=== PATIENT | female | born 1985 | race Caucasian/White ===

== ENCOUNTER 2016-10-15 12:56 | Outpatient (CLI) | payer OTHER | END 2016-10-15 12:57 | disposition home or self-care (01) | DX: S42.255A Nondisplaced fracture of greater tuberosity of left humerus, initial encounter for closed fracture (principal); M24.812 Other specific joint derangements of left shoulder, not elsewhere classified ==

== ENCOUNTER 2017-05-16 15:47 | Outpatient (CLI) | payer OTHER ==
[2017-05-16 16:28] LABS: BASOPHILS # (AUTO) 0.1 10^3/uL (0.0-0.1); BASOPHILS % (AUTO) 1.1 %; EOSINOPHILS # (AUTO) 0.2 10^3/uL (0.0-0.7); EOSINOPHILS % (AUTO) 2.7 %; HCT - HEMATOCRIT 42.2 % (37.0-47.0); HGB - HEMOGLOBIN 14.1 g/dL (12.0-16.0); LYMPHOCYTES # (AUTO) 2.1 10^3/uL (1.5-3.5); LYMPHOCYTES % (AUTO) 32.8 %; MEAN CORPUSCULAR HEMOGLOBIN 28.7 pg (27.0-31.0); MEAN CORPUSCULAR HGB CONC 33.5 g/dL (32.0-36.0); MEAN CORPUSCULAR VOLUME 85.6 fL (81.0-99.0); MEAN PLATELET VOLUME 7.5 fL (7.9-10.8); MONOCYTES # (AUTO) 0.7 10^3/uL (0.0-1.0); NEUTROPHILS # (AUTO) 3.3 10^3/uL (1.5-6.6); NEUTROPHILS % (AUTO) 52.4 %; RED BLOOD COUNT 4.93 10^6/uL (4.20-5.40); RED CELL DISTRIBUTION WIDTH 13.1 % (12.0-15.0); UNCORRECTED WHITE BLOOD COUNT 6.3 x10^3/uL; WHITE BLOOD COUNT 6.3 x10^3/uL (4.8-10.8)
[2017-05-16 16:47] LABS: ALBUMIN/GLOBULIN RATIO 1.7 (1.0-2.2); BILIRUBIN,TOTAL 0.7 mg/dL (0.2-1.0); POTASSIUM 3.2 mmol/L (3.5-5.0); TOTAL PROTEIN 8.4 g/dL (6.7-8.2)
[2017-05-19 17:12] LABS: TEST RESULT REPORT (())
[2017-05-21 15:51] LABS: TEST RESULT REPORT (())
== END 2017-05-16 15:48 | disposition home or self-care (01) ==
LOC: LAB 15:47
PROVIDERS: ATTEND Physician Assistant Medical
DX: Z83.2 Family history of diseases of the blood and blood-forming organs and certain disorders involving the immune mechanism (principal)
CPT/HCPCS: 80053; 81599; 85025; 85240; 85245; 85246; 85247; 85730

== ENCOUNTER 2017-05-26 07:09 | Outpatient (CLI) | payer OTHER ==
[2017-05-26 13:39] LABS: CALCIUM 9.4 mg/dL (8.5-10.3); CREATININE 0.9 mg/dL (0.4-1.0); POTASSIUM 3.7 mmol/L (3.5-5.0)
== END 2017-05-26 07:10 | disposition home or self-care (01) ==
LOC: LAB.WCP 07:09
PROVIDERS: ATTEND Physician Assistant Medical
DX: E87.6 Hypokalemia (principal)
CPT/HCPCS: 36415; 80048

== ENCOUNTER 2017-07-22 07:01 | Day surgery (SDC) | payer OTHER ==
[~2017-07-22 07:01] MED LIST: LACTATED RINGERS 1,000 ML IV ONE
[2017-07-22 07:48] LABS: HCG UR QUAL NEGATIVE
[2017-07-22] MEDS ORDERED: fentaNYL 100 MCG/2 ML VIAL IVP ONE (08:15)
[2017-07-22] MEDS ORDERED: MIDAZOLAM 2 MG/2 ML VIAL IVP ONE (08:15)
[2017-07-22 09:29] VITALS: BP 118/72
== END 2017-07-22 07:02 | disposition home or self-care (01) ==
LOC: SDS 07:01
PROVIDERS: ATTEND Surgery
PROC: 0DBN8ZX Excision of Sigmoid Colon, Via Natural or Artificial Opening Endoscopic, Diagnostic (ICD-10-PCS; principal; 2017-07-22 08:15)
DX: D12.5 Benign neoplasm of sigmoid colon (principal); K64.8 Other hemorrhoids; I10 Essential (primary) hypertension; Z80.0 Family history of malignant neoplasm of digestive organs
CPT/HCPCS: 45380; 81025; J7120

== ENCOUNTER 2017-07-23 09:02 | Outpatient (CLI) | payer OTHER ==
[2017-07-23 12:59] LABS: BASOPHILS % (AUTO) 0.6 %; EOSINOPHILS # (AUTO) 0.1 10^3/uL (0.0-0.7); EOSINOPHILS % (AUTO) 1.6 %; HCT - HEMATOCRIT 39.7 % (37.0-47.0); HGB - HEMOGLOBIN 13.2 g/dL (12.0-16.0); LYMPHOCYTES # (AUTO) 1.4 10^3/uL (1.5-3.5); LYMPHOCYTES % (AUTO) 18.4 %; MEAN CORPUSCULAR HEMOGLOBIN 28.8 pg (27.0-31.0); MEAN CORPUSCULAR HGB CONC 33.4 g/dL (32.0-36.0); MEAN CORPUSCULAR VOLUME 86.2 fL (81.0-99.0); MEAN PLATELET VOLUME 8.4 fL (7.9-10.8); MONOCYTES # (AUTO) 0.4 10^3/uL (0.0-1.0); MONOCYTES % (AUTO) 5.8 %; NEUTROPHILS # (AUTO) 5.7 10^3/uL (1.5-6.6); NEUTROPHILS % (AUTO) 73.6 %; RED BLOOD COUNT 4.61 10^6/uL (4.20-5.40); UNCORRECTED WHITE BLOOD COUNT 7.7 x10^3/uL; WHITE BLOOD COUNT 7.7 x10^3/uL (4.8-10.8)
[2017-07-23 13:04] LABS: H. PYLORI IGG ANTIBODY Negative (Negative); HPYLORI NEG QC Negative (Negative); HPYLORI POS QC POSITIVE (Positive)
[2017-07-23 13:27] LABS: ALBUMIN/GLOBULIN RATIO 1.6 (1.0-2.2); BILIRUBIN,TOTAL 0.6 mg/dL (0.2-1.0); CALCIUM 9.7 mg/dL (8.5-10.3); POTASSIUM 3.8 mmol/L (3.5-5.0); TOTAL PROTEIN 7.7 g/dL (6.7-8.2)
== END 2017-07-23 09:03 | disposition home or self-care (01) ==
LOC: LAB.WCP 09:02
PROVIDERS: ATTEND Physician Assistant Medical
DX: R11.0 Nausea (principal)
CPT/HCPCS: 36415; 80053; 82150; 83690; 85025; 87339

== ENCOUNTER 2017-09-15 08:42 | Outpatient (CLI) | payer OTHER ==
--- NOTE | 2017-09-15 16:01 | Nuclear Medicine Report ---
EXAM: GASTRIC EMPTYING STUDY EXAM DATE: 09/15/2017 03:08 PM. CLINICAL HISTORY: NAUSEA AND VOMITING. COMPARISON: None. TECHNIQUE: A standard meal was radiolabeled with 1.05 mCi Tc-99m sulfur colloid according to protocol . Following the p.o. administration of this meal, the patient underwent multiple static images over t he abdomen from the anterior and posterior projections, at approximately 0, 1, 2, 3, and 4 hours fol lowing the ingestion of the meal. Region of interest analysis was employed, and percent emptied/perce nt remaining of the meal was calculated using both the geometric mean and decay corrections. FINDINGS: There was an error with the machine and the immediate image data were lost. IMPRESSION: Nondiagnostic exam because of a technical error with the machine. [facility] Referring Provider Line: [phone] SITE ID: [id number]
== END 2017-09-15 08:43 | disposition home or self-care (01) ==
LOC: DI 08:42
PROVIDERS: ATTEND Internal Medicine
DX: R11.2 Nausea with vomiting, unspecified (principal)
CPT/HCPCS: 78265; A9541

== ENCOUNTER 2017-09-24 08:44 | Outpatient (CLI) | payer OTHER ==
--- NOTE | 2017-09-24 14:50 | Nuclear Medicine Report ---
EXAM: GASTRIC EMPTYING STUDY EXAM DATE: 09/24/2017 02:01 PM. CLINICAL HISTORY: NAUSEA AND VOMITING. COMPARISON: None. TECHNIQUE: A standard meal was radiolabeled with 1 mCi Tc-99m sulfur colloid according to protocol. F ollowing the p.o. administration of this meal, the patient underwent multiple static images over the abdomen from the anterior and posterior projections, at approximately 0, 1, 2, 3, and 4 hours follow ing the ingestion of the meal. Region of interest analysis was employed, and percent emptied/percent remaining of the meal was calculated using both the geometric mean and decay corrections. FINDINGS: Calculations demonstrate: TIME (hours) Percent remaining. Normal values for percent remaining. 1 hour: 38.7% (30-90%) 2 hours: 28.7% (0-60%) 3 hours: 21.3% (0-30%) 4 hours: 20.5% (0-10%) IMPRESSION: Delayed gastric emptying. [facility] Referring Provider Line: [phone] SITE ID: [id number]
== END 2017-09-24 08:45 | disposition home or self-care (01) ==
LOC: DI 08:44
PROVIDERS: ATTEND Internal Medicine
DX: R11.2 Nausea with vomiting, unspecified (principal)
CPT/HCPCS: 78265

== ENCOUNTER 2017-10-24 09:07 | Emergency (ER) | payer OTHER ==
[2017-10-24] MEDS ORDERED: SODIUM CHLORIDE 0.9% 1,000 ML IV ONE ×2 (10:27→10:36)
[2017-10-24] MEDS ORDERED: MAG HYDROX/AL HYDROX/SIMETH 30 ML UDC PO STA (10:36)
[2017-10-24] MEDS ORDERED: PROMETHAZINE INJ 12.5 MG in SODIUM CHLORIDE 0.9% 50 ML IV STA (10:36)
[2017-10-24] MEDS ORDERED: PHENobarb/HYOSCY/ATROPINE/SCOP 5 ML SYRINGE PO STA (10:36)
[2017-10-24] MEDS ORDERED: LIDOCAINE VISCOUS 2% 15 ML UDC MM STA (10:37)
--- NOTE | 2017-10-24 10:40 | ED Physician Documentation ---
PD HPI ABD PAIN - Stated complaint Stated Complaint: VOMITING/UNABLE TO EAT - Chief complaint Chief Complaint: Abd Pain - History obtained from History obtained from: Patient - History of Present Illness Timing - onset: Yesterday Timing - details: Waxing and waning Quality: Cramping Location: Epigastric Worsened by: Eating Associated symptoms: Nausea, Vomiting, Constipation. No: Fever, Diarrhea Similar symptoms before: Work up / diagnostics (Gastric emptying study for chronic nausea.) - Treatment prior to arrival Treatment prior to arrival: Zofran without relief. - Additional information Additional information: The patient is a 32-year-old female who presents with nausea and dry heaves that have been persistent since last night. She has a history of chronic nausea for more than 1 year, and has undergone diagnostic evaluation, including gastric emptying studies. She reports having nausea on a daily basis, with exacerbations of persistent vomiting at times. This morning she has had dry heaves, and has been unable to keep anything down. She has taken Zofran without relief. She reports epigastric cramping discomfort. She denies fever, diarrhea, or dysuria. She reports problems with constipation, stating her last bowel movement was yesterday morning. Her last menstrual period was 3 weeks ago. Review of Systems Constitutional: denies: Fever Ears: denies: Tinnitus/ringing Nose: denies: Congestion Throat: denies: Sore throat Cardiac: denies: Chest pain / pressure Respiratory: denies: Dyspnea, Cough GI: reports: Abdominal Pain, Nausea, Vomiting. denies: Diarrhea : reports: LMP (3 weeks ago.). denies: Dysuria Skin: denies: Rash Musculoskeletal: denies: Back pain Neurologic: denies: Focal weakness, Numbness, Headache PD PAST MEDICAL HISTORY - Past Medical History Cardiovascular: None Respiratory: None Endocrine/Autoimmune: None GI: Other (Chronic nausea.) : None HEENT: None Psych: Depression, Anxiety Musculoskeletal: None Derm: None - Past Surgical History HEENT: Tonsil/Adenoidectomy - Present Medications Home Medications: Ambulatory Orders Medication Instructions Recorded Confirmed Buspirone HCl 5 mg PO DAILY 07/21/17 07/22/17 Norethindrone 0.35 mg PO DAILY 07/21/17 07/22/17 buPROPion [Wellbutrin Sr] 100 mg PO BID 10/23/17 10/23/17 Metoclopramide [Reglan] 10 mg PO Q6H PRN #20 tablet 10/24/17 - Allergies Allergies/Adverse Reactions: Allergies Allergy/AdvReac Type Severity Reaction Status Date / Time No Known Drug Allergies Allergy Verified 10/24/17 09:27 - Social History Does the pt smoke?: No Smoking Status: Never smoker Does the pt drink ETOH?: Yes Does the pt have substance abuse?: No PD ED PE NORMAL - Vitals Vital signs reviewed: Yes (Initially hypertensive.) - General General: Alert and oriented X 3, Well developed/nourished - HEENT HEENT: Atraumatic, Moist mucous membranes, Pharynx benign - Neck Neck: Supple, no meningeal sign, No adenopathy - Cardiac Cardiac: RRR, No murmur - Respiratory Respiratory: No respiratory distress, Clear bilaterally - Abdomen Abdomen: Normal bowel sounds, Soft, Non distended, No organomegaly, Other (Mild tenderness to palpation in the epigastric region, without rebound or guarding.) - Back Back: No CVA TTP - Derm Derm: No rash - Extremities Extremities: No edema, No calf tenderness / cord - Neuro Neuro: Alert and oriented X 3, No motor deficit, Normal speech Results - Vitals Vitals: Vital Signs - 24 hr 10/24/17 10/24/17 12:44 14:46 Temperature 36 C L 36.9 C Heart Rate 91 110 H Respiratory 18 20 Rate Blood Pressure 125/84 H 115/77 O2 Saturation 100 100 Oxygen O2 Source Room air - Labs Labs: Laboratory Tests 10/24/17 10/24/17 10/24/17 10:10 10:40 11:20 WBC 9.0 RBC 4.83 Hgb 14.1 Hct 39.5 MCV 81.9 MCH 29.2 MCHC 35.7 RDW 13.1 Plt Count 334 MPV 7.5 L Neut # 7.1 H Lymph # 1.2 L [place] # 0.5 Eos # 0.0 Baso # 0.1 Absolute Nucleated RBC 0.00 Nucleated RBC % 0.0 Sodium 140 Potassium 3.7 Chloride 106 Carbon Dioxide 22 Anion Gap 12.0 BUN 12 Creatinine 0.9 Estimated GFR (MDRD) 74 L Glucose 80 Calcium 10.3 Total Bilirubin 0.7 AST 24 ALT 21 Alkaline Phosphatase 57 Total Protein 8.2 Albumin 4.9 Globulin 3.3 Albumin/Globulin Ratio 1.5 Lipase 28 Urine Color YELLOW Urine Clarity CLEAR Urine pH 6.5 Ur Specific [place] 1.020 Urine Protein NEGATIVE Urine Glucose (UA) NEGATIVE Urine Ketones TRACE Urine Occult Blood NEGATIVE Urine Nitrite NEGATIVE Urine Bilirubin NEGATIVE Urine Urobilinogen 0.2 (NORMAL) Ur Leukocyte Esterase NEGATIVE Ur Microscopic Review NOT INDICATED Urine Culture Comments NOT INDICATED Urine HCG, Qual NEGATIVE - Rads (name of study) 1-view abd Radiology: Prelim report reviewed, EMP read contemporaneously, See rad report ( No bowel obstruction. Mild to moderate gaseous distention of small bowel and colon. Small volume of stool in the colon. Electronic device projects over the right upper quadrant.) PD MEDICAL DECISION MAKING - ED course Complexity details: reviewed results, re-evaluated patient, considered differential, d/w patient ED course: The underlying cause for the patient's nausea is uncertain, but is of relatively chronic duration, for which she has undergone extensive evaluation in the past. Abdominal x-ray today reveals mild to moderate gaseous distention , without evidence of bowel obstruction. CBC, chemistry panel, and urinalysis are unremarkable. Treatment in the emergency department included administration of normal saline 1 L IV, Phenergan 12.5 mg IV, and Reglan 10 mg IV. These anti-emetics did not relieve her nausea. Lorazepam 0.5 mg is administered IV and the patient's symptoms markedly improved. GI cocktail was administered, and this relieved the patient's mild epigastric discomfort. She subsequently demonstrated ability to drink fluids without recurrent nausea or vomiting. She is being discharged with a prescription for metoclopramide. I discussed with her the results of her workup, symptomatic treatment and outpatient follow-up, as well as potentially worrisome signs or symptoms that should prompt reevaluation in the emergency department. Departure - Departure Disposition: 01 Home, Self Care Clinical Impression: Nausea Condition: Stable Instructions: ED Nausea Vomiting Follow-Up: Kati Shah PA-C [Primary Care Provider] - Prescriptions: Metoclopramide [Reglan] 10 mg PO Q6H PRN #20 tablet PRN Reason: Nausea / Vomiting Comments: Take Reglan as prescribed if needed for nausea. Drink plenty of fluids. Follow up with your primary physician within 1-2 weeks. Call to schedule appointment. Return to the emergency department if you develop increasing abdominal pain, persistent vomiting, or otherwise worsening symptoms. Discharge Date/Time: 10/24/17 14:46
[2017-10-24 10:57] LABS: BASOPHILS # (AUTO) 0.1 10^3/uL (0.0-0.1); BASOPHILS % (AUTO) 1.3 %; EOSINOPHILS % (AUTO) 0.4 %; HGB - HEMOGLOBIN 14.1 g/dL (12.0-16.0); LYMPHOCYTES # (AUTO) 1.2 10^3/uL (1.5-3.5); LYMPHOCYTES % (AUTO) 13.6 %; MEAN CORPUSCULAR HEMOGLOBIN 29.2 pg (27.0-31.0); MEAN CORPUSCULAR HGB CONC 35.7 g/dL (32.0-36.0); MEAN CORPUSCULAR VOLUME 81.9 fL (81.0-99.0); MEAN PLATELET VOLUME 7.5 fL (7.9-10.8); MONOCYTES # (AUTO) 0.5 10^3/uL (0.0-1.0); MONOCYTES % (AUTO) 5.6 %; NEUTROPHILS # (AUTO) 7.1 10^3/uL (1.5-6.6); NEUTROPHILS % (AUTO) 79.1 %; PLT - PLATELET COUNT 334 10^3/uL (130-450); RED BLOOD COUNT 4.83 10^6/uL (4.20-5.40); RED CELL DISTRIBUTION WIDTH 13.1 % (12.0-15.0)
[2017-10-24 11:05] LABS: ALBUMIN 4.9 g/dL (3.2-5.5); ALBUMIN/GLOBULIN RATIO 1.5 (1.0-2.2); BILIRUBIN,TOTAL 0.7 mg/dL (0.2-1.0); CALCIUM 10.3 mg/dL (8.5-10.3); CREATININE 0.9 mg/dL (0.4-1.0); TOTAL PROTEIN 8.2 g/dL (6.7-8.2)
[2017-10-24] MEDS ORDERED: METOCLOPRAMIDE 10 MG/2 ML VIAL IVP STA (11:27)
[2017-10-24 11:33] LABS: BILIRUBIN,URINE NEGATIVE (NEGATIVE); GLUCOSE, URINE (UA) NEGATIVE (NEGATIVE); KETONES,URINE (UA) TRACE mg/dL (NEGATIVE); LEUKOCYTE ESTERASE, URINE NEGATIVE (NEGATIVE); NITRITE,URINE NEGATIVE (NEGATIVE); OCCULT BLOOD,URINE NEGATIVE (NEGATIVE); PH,URINE 6.5 PH (5.0-7.5); PROTEIN,URINE NEGATIVE (NEGATIVE); UROBILINOGEN,URINE 0.2 (NORMAL) E.U./dL (NORMAL)
[2017-10-24 11:35] LABS: CLARITY,URINE CLEAR (CLEAR); HCG UR QUAL NEGATIVE
--- NOTE | 2017-10-24 12:18 | XRAY Report ---
EXAM: ABDOMEN RADIOGRAPHY EXAM DATE: 10/24/2017 12:07 PM. CLINICAL HISTORY: Cramping abdominal pain. History of constipation. COMPARISON: None. TECHNIQUE: 1 view. FINDINGS: Bowel Gas Pattern: Mild to moderate gaseous distention of small bowel and colon. No evidence of bowel obstruction. [id number] gaseous distention of the stomach. Electronic device projects over the right upper quadrant. No portal venous gas or pneumatosis. Small volume of stool in the colon. Other: Lung bases are clear. No osseous abnormalities. IMPRESSION: 1. No bowel obstruction. 2. Mild to moderate gaseous distention of small bowel and colon. 3. Small volume of stool in the colon. 4. Electronic device projects over the right upper quadrant. [facility] Referring Provider Line: [phone] SITE ID: [id number]
--- NOTE | 2017-10-24 12:18 | XRAY Preliminary Report ---
Exam: XR ABDOMEN 1 VIEW X-RAY IMPRESSION: 1. No bowel obstruction. 2. Mild to moderate gaseous distention of small bowel and colon. 3. Small volume of stool in the colon. 4. Electronic device projects over the right upper quadrant. [facility] SITE ID: [id number]
[2017-10-24] MEDS ORDERED: LORazepam 2 MG/ML VIAL IVP STA (12:35)
[2017-10-24 14:47] VITALS: BP 115/77
== END 2017-10-24 14:46 | disposition home or self-care (01) ==
LOC: ED 09:07
DX: R11.2 Nausea with vomiting, unspecified (principal); R10.13 Epigastric pain
CPT/HCPCS: 36415; 74018; 80053; 81003; 81025; 83690; 85025; 96365; 96375; 99283; A9270; J2060; J7040; 81001; 87086

== ENCOUNTER 2018-12-22 08:00 | Outpatient (CLI) | payer OTHER | END 2018-12-22 23:59 | disposition home or self-care (01) | LOC: LAB.R 08:00 | PROVIDERS: ATTEND Obstetrics & Gynecology | DX: N89.8 Other specified noninflammatory disorders of vagina (principal); B37.3 Candidiasis of vulva and vagina | CPT/HCPCS: 87480; 87510; 87660 ==

== ENCOUNTER 2019-01-12 18:19 | Emergency (ER) | payer OTHER ==
--- NOTE | 2019-01-12 18:49 | ED Physician Documentation ---
PD HPI CHEST PAIN - Stated complaint Stated Complaint: CHEST THIGHTNESS/BILAT LEG PAIN - Chief complaint Chief Complaint: Cardiac - History obtained from History obtained from: Patient - History of Present Illness Timing - onset: Other (On and off for months with difficulty taking a deep breath d/t chest tightness. Now for 1 week, tight in L calf and more recently moving to R calf. No travel. Is on OCP. No H/O DVt/PE.) Review of Systems Ten Systems: 10 systems reviewed and negative Constitutional: denies: Fever, Chills Cardiac: reports: Chest pain / pressure. denies: Palpitations, Pedal edema, Calf pain Respiratory: denies: Dyspnea, Cough GI: reports: Abdominal Pain PD PAST MEDICAL HISTORY - Past Medical History Cardiovascular: None Respiratory: None Endocrine/Autoimmune: None GI: Other (Chronic nausea.) : None HEENT: None Psych: Depression, Anxiety Musculoskeletal: None Derm: None - Past Surgical History HEENT: Tonsil/Adenoidectomy - Present Medications Home Medications: Ambulatory Orders Medication Instructions Recorded Confirmed RX: Buspirone HCl 10 mg PO BID 07/21/17 01/12/19 RX: Norethindrone 0.35 mg PO DAILY 07/21/17 01/12/19 buPROPion [Wellbutrin Sr] 300 mg PO DAILY 07/21/17 01/12/19 RX: Promethazine [Phenergan] 1 tab PO TID PRN 01/12/19 01/12/19 - Allergies Allergies/Adverse Reactions: Allergies Allergy/AdvReac Type Severity Reaction Status Date / Time No Known Drug Allergies Allergy Verified 01/12/19 18:30 - Social History Does the pt smoke?: No Smoking Status: Never smoker Does the pt drink ETOH?: Yes Does the pt have substance abuse?: No PD ED PE NORMAL - Vitals Vital signs reviewed: Yes - General General: Alert and oriented X 3, No acute distress - Cardiac Cardiac: RRR, No murmur - Respiratory Respiratory: No respiratory distress, Clear bilaterally - Abdomen Abdomen: Non tender - Derm Derm: Normal color, Warm and dry - Extremities Extremities: No edema, No calf tenderness / cord - Neuro Neuro: Alert and oriented X 3, Normal speech - Psych Psych: Normal mood, Normal affect Results - Vitals Vitals: Vital Signs - 24 hr 01/12/19 01/12/19 01/12/19 18:22 19:08 20:45 Temperature 37.0 C 36.2 C L Heart Rate 95 78 Respiratory 18 17 16 Rate Blood Pressure 153/107 H 137/96 H O2 Saturation 100 100 Oxygen O2 Source Room air - EKG (time done) 1836 Rate: Rate (enter#) (89) Rhythm: NSR [place]: Normal Intervals: Normal [place] QRS: Normal Ischemia: Normal ST segments Computer interpretation: Agree with computer - Labs Labs: Laboratory Tests 01/12/19 01/12/19 19:10 19:10 D-Dimer < 200.0 L Urine Color YELLOW Urine Clarity CLEAR Urine pH 6.5 Ur Specific [place] <=1.005 Urine Protein NEGATIVE Urine Glucose (UA) NEGATIVE Urine Ketones NEGATIVE Urine Occult Blood NEGATIVE Urine Nitrite NEGATIVE Urine Bilirubin NEGATIVE Urine Urobilinogen 0.2 (NORMAL) Ur Leukocyte Esterase NEGATIVE Ur Microscopic Review NOT INDICATED Urine Culture Comments NOT INDICATED Urine HCG, Qual NEGATIVE - Rads (name of study) 2v chest Radiology: EMP read contemporaneously (normal) BLE DVT sono Radiology: EMP read contemporaneously (neg) PD MEDICAL DECISION MAKING - ED course ED course: This is a 33-year-old woman with atypical chest pain, given the complaints of leg pain the main concern would be for thrombosis, and this was worked up and negative with d-dimer and lower extremity Dopplers. Departure - Departure Disposition: 01 Home, Self Care Clinical Impression: Atypical chest pain, Leg pain Condition: Good Record reviewed to determine appropriate education?: Yes Instructions: ED Chest Pain NonCardiac, ED Muscle Pain Leg Cramps Comments: Your blood pressure was elevated today on check into the emergency department. This does not mean that you have hypertension, it is a common phenomenon to come to the emergency department and have elevated blood pressure. I recommend that you see your primary care physician within the week to have it rechecked when you are feeling better. Discharge Date/Time: 01/12/19 20:46
[2019-01-12 19:27] LABS: BILIRUBIN,URINE NEGATIVE (NEGATIVE); GLUCOSE, URINE (UA) NEGATIVE (NEGATIVE); KETONES,URINE (UA) NEGATIVE (NEGATIVE); LEUKOCYTE ESTERASE, URINE NEGATIVE (NEGATIVE); NITRITE,URINE NEGATIVE (NEGATIVE); OCCULT BLOOD,URINE NEGATIVE (NEGATIVE); PH,URINE 6.5 PH (5.0-7.5); PROTEIN,URINE NEGATIVE (NEGATIVE); UROBILINOGEN,URINE 0.2 (NORMAL) E.U./dL (NORMAL)
[2019-01-12 19:30] LABS: CLARITY,URINE CLEAR (CLEAR); HCG UR QUAL NEGATIVE
--- NOTE | 2019-01-12 20:13 | Ultrasound Report ---
Reason: leg pain Procedure Date: 01/12/2019 Accession Number: [id number] / [id number] Procedure: US - Duplex Ext Veins Bilateral CPT Code: FULL RESULT: EXAM: BILATERAL LOWER EXTREMITY VENOUS ULTRASOUND EXAM DATE: 01/12/2019 08:05 PM. CLINICAL HISTORY: Leg pain. COMPARISON: None. TECHNIQUE: Real-time sonographic vascular imaging was performed by the fixed income analyst through the lower extremities utilizing both color-flow and Doppler spectral analysis. Multiple visitor services representative static images were saved for review. FINDINGS: Right: Common Femoral Vein (CFV): Normal. CFV-GSV Junction: Normal. Profunda Femoral Vein (PFV): Normal. Femoral Vein (FV) Prox: Normal. Femoral Vein (FV) Mid: Normal. Femoral Vein (FV) Dist: Normal. Popliteal Vein: Normal. Posterior Tibial Veins: Normal. Peroneal Veins: Normal. Left: Common Femoral Vein (CFV): Normal. CFV-GSV Junction: Normal. Profunda Femoral Vein (PFV): Normal. Femoral Vein (FV) Prox: Normal. Femoral Vein (FV) Mid: Normal. Femoral Vein (FV) Dist: Normal. Popliteal Vein: Normal. Posterior Tibial Veins: Normal. Peroneal Veins: Normal. Other: None. IMPRESSION: No evidence for deep venous thrombosis in the visualized bilateral lower extremities. [facility]
--- NOTE | 2019-01-12 20:35 | XRAY Report ---
Reason: chest pain Procedure Date: 01/12/2019 Accession Number: [id number] / [id number] Procedure: XR - Chest 2 View X-Ray CPT Code: 80386 FULL RESULT: EXAM: CHEST RADIOGRAPHY EXAM DATE: 01/12/2019 08:10 PM. CLINICAL HISTORY: Chest pain. COMPARISON: None. TECHNIQUE: 2 views. FINDINGS: Lungs/Pleura: No dense consolidation. No large effusion or pneumothorax. No pulmonary edema. Mediastinum: Heart and mediastinal contours are unremarkable. Other: None. IMPRESSION: No acute radiographic pulmonary abnormalities. [facility]
[2019-01-12 20:45] VITALS: BP 137/96
== END 2019-01-12 20:46 | disposition home or self-care (01) ==
LOC: ED 18:19
DX: R07.89 Other chest pain (principal); M79.605 Pain in left leg; M79.604 Pain in right leg; R03.0 Elevated blood-pressure reading, without diagnosis of hypertension
CPT/HCPCS: 36415; 71046; 81001; 81003; 81025; 85379; 87086; 93005; 93970; 99283

== ENCOUNTER 2019-01-18 10:09 | Outpatient (CLI) | payer OTHER ==
[2019-01-18 14:40] LABS: ALBUMIN 4.5 g/dL (3.2-5.5); ALBUMIN/GLOBULIN RATIO 1.4 (1.0-2.2); BILIRUBIN,TOTAL 0.5 mg/dL (0.2-1.0); MAGNESIUM 2.4 mg/dL (1.7-2.8); TOTAL PROTEIN 7.8 g/dL (6.7-8.2)
== END 2019-01-18 10:10 | disposition home or self-care (01) ==
LOC: LAB.WCP 10:09
PROVIDERS: ATTEND Family Medicine
DX: R25.2 Cramp and spasm (principal)
CPT/HCPCS: 36415; 80053; 83735

== ENCOUNTER 2019-01-27 09:02 | Outpatient (CLI) | payer OTHER ==
[2019-01-27] MEDS ORDERED: ALBUTEROL NEB 2.5 MG/3 ML INH SCH (10:00)
== END 2019-01-27 09:03 | disposition home or self-care (01) ==
LOC: RT 09:02
PROVIDERS: ATTEND Family Medicine
DX: R06.00 Dyspnea, unspecified (principal)
CPT/HCPCS: 94060; 94729

== ENCOUNTER 2019-07-14 10:09 | Outpatient (CLI) | payer OTHER ==
[2019-07-14 12:17] LABS: BASOPHILS # (AUTO) 0.1 10^3/uL (0.0-0.1); BASOPHILS % (AUTO) 0.8 %; EOSINOPHILS # (AUTO) 0.1 10^3/uL (0.0-0.7); HGB - HEMOGLOBIN 13.6 g/dL (12.0-16.0); LYMPHOCYTES # (AUTO) 1.9 10^3/uL (1.5-3.5); LYMPHOCYTES % (AUTO) 30.2 %; MEAN CORPUSCULAR HEMOGLOBIN 28.3 pg (27.0-31.0); MEAN CORPUSCULAR VOLUME 88.4 fL (81.0-99.0); MEAN PLATELET VOLUME 9.7 fL (7.9-10.8); MONOCYTES # (AUTO) 0.5 10^3/uL (0.0-1.0); MONOCYTES % (AUTO) 8.4 %; NEUTROPHILS # (AUTO) 3.7 10^3/uL (1.5-6.6); NEUTROPHILS % (AUTO) 58.3 %; PLT - PLATELET COUNT 335 10^3/uL (130-450); RED BLOOD COUNT 4.81 10^6/uL (4.20-5.40); RED CELL DISTRIBUTION WIDTH 12.6 % (12.0-15.0); WHITE BLOOD COUNT 6.4 x10^3/uL (4.8-10.8)
[2019-07-14 13:09] LABS: ALBUMIN 4.6 g/dL (3.2-5.5); ALBUMIN/GLOBULIN RATIO 1.5 (1.0-2.2); BILIRUBIN,TOTAL 0.6 mg/dL (0.2-1.0); CALCIUM 9.9 mg/dL (8.5-10.3); CREATININE 0.9 mg/dL (0.4-1.0); TOTAL PROTEIN 7.7 g/dL (6.7-8.2)
== END 2019-07-14 23:59 | disposition home or self-care (01) ==
LOC: LAB.WCP 10:09
PROVIDERS: ATTEND Family Medicine
DX: R10.31 Right lower quadrant pain (principal)
CPT/HCPCS: 36415; 80053; 83690; 84702; 85025

== ENCOUNTER 2019-08-03 06:00 | Outpatient (CLI) | payer OTHER ==
[2019-08-03] MEDS ORDERED: IOVERSOL 320 100 ML VIAL IVP ONE ×2 (06:27→07:36)
[2019-08-03] MEDS ORDERED: IOVERSOL 320 50 ML VIAL ONE (06:27)
[2019-08-03] MEDS ORDERED: IOVERSOL 320 50 ML VIAL PO ONE (07:36)
--- NOTE | 2019-08-03 15:52 | CT Report ---
Reason: RIGHT LOWER QUADRANT PAIN Procedure Date: 08/03/2019 Accession Number: [id number] / [id number] Procedure: CT - Abdomen/Pelvis W CPT Code: Final Report FULL RESULT: EXAM: CT ABDOMEN AND PELVIS WITH IV CONTRAST EXAM DATE: 08/03/2019 07:34 AM. CLINICAL HISTORY: Right lower quadrant pain. COMPARISONS: ABDOMEN 1 VIEW 10/24/2017. TECHNIQUE: Routine helical CT imaging was performed through the abdomen and pelvis. IV contrast: Optiray 320, 90 mL. Enteric contrast: Yes. Reconstructions: Coronal and sagittal. In accordance with CT protocol optimization, one or more of the following dose reduction techniques were utilized for this exam: automated exposure control, adjustment of mA and/or KV based on patient size, or use of iterative reconstructive technique. FINDINGS: Lung Bases: Unremarkable. Liver: Normal. No masses. Gallbladder/Bile Ducts: Unremarkable. Spleen: Normal. Pancreas: Normal. Adrenal Glands: Normal. Kidneys: Normal. No masses or hydronephrosis. Peritoneal Cavity/Bowel: The appendix demonstrates periappendiceal fat stranding and measures up to 1.1 cm in caliber at the tip, location is retrocecal with contrast entering the base of the appendix but unable to progress. There is no associated free fluid or fluid collection. There is no free air. There is no bowel obstruction. There is no pathologic enlargement of lymph nodes. Pelvic Organs: A calcification in the region of the left ureterovesical junction is also demonstrated on a 2018 abdominal radiograph and there is no upstream hydroureteronephrosis to suggest that this is a ureteral calculus. Urinary bladder is distended. Vasculature: No aneurysms or other significant abnormality. Bones: No significant abnormality. Other: None. IMPRESSION: Uncomplicated acute appendicitis. Please note retrocecal appendix for surgical approach. NOEL The call report notification system was initiated by Dr. Andre Whitaker at 03:48 PM on 08/03/2019. The above call report findings were discussed with JEN Cabrera on behalf of Linette Colindres by Dr. Andre Whitaker at 03:54 PM on 08/03/2019. She shared that the diagnosis of acute appendicitis was indeed the clinical concern and agreed to contact the patient immediately.
[2019-08-03] MEDS ORDERED: LIDOCAINE 1% 50 ML MDV ONE (19:45)
[2019-08-03] MEDS ORDERED: BUPIVACAINE 0.5% PF 30 ML VIAL ONE (19:46)
[2019-08-03] MEDS ORDERED: BUPIVACAINE 0.5%-EPI 1:200000 PF 30 ML VIAL ONE (19:48)
== END 2019-08-03 06:01 | disposition home or self-care (01) ==
LOC: DI 06:00
PROVIDERS: ATTEND Family Medicine
DX: K35.80 Unspecified acute appendicitis (principal)
CPT/HCPCS: 74177

== ENCOUNTER 2019-08-03 16:59 | Day surgery (SDC) | payer OTHER ==
[2019-08-03] MEDS ORDERED: LACTATED RINGERS 1,000 ML IV STA (17:29)
[2019-08-03] MEDS ORDERED: PIPERACILLIN/TAZOBACTAM 3.375 GM in SODIUM CHLORIDE 0.9% MINIBAG 100 ML IV STA (17:29)
--- NOTE | 2019-08-03 17:31 | ED Physician Documentation ---
PD HPI ABD PAIN - Stated complaint Stated Complaint: DX OF APPENDICITIS FROM DI - Chief complaint Chief Complaint: Abd Pain - History obtained from History obtained from: Patient - History of Present Illness Timing - onset: How many days ago (2) Timing - duration: Days (2) Timing - details: Gradual onset Pain level max: 4 Pain level now: 4 Quality: Aching, Pain Location: RLQ Radiation: No: Chest, , Lower back, Left flank, Left shoulder, Right flank, Right shoulder, Upper back Improved by: Laying still Worsened by: Moving Associated symptoms: No: Fever, Nausea, Vomiting, Hematemesis, Diarrhea, Constipation Recently seen: Clinic - Additional information Additional information: 34-year-old female states that she has had intermittent right lower quadrant pain for the past several months. She is saw her PCP today who ordered a CT scan, the CT scan shows tip appendicitis. Sent here for evaluation. Review of Systems Ten Systems: 10 systems reviewed and negative Constitutional: denies: Fever, Chills GI: denies: Vomiting, Diarrhea Skin: denies: Rash Musculoskeletal: denies: Neck pain, Back pain PD PAST MEDICAL HISTORY - Past Medical History Cardiovascular: None Respiratory: None Endocrine/Autoimmune: None GI: Other (Chronic nausea.) : None HEENT: None Psych: Depression, Anxiety Musculoskeletal: None Derm: None - Past Surgical History Past Surgical History: Yes HEENT: Tonsil/Adenoidectomy - Present Medications Home Medications: Ambulatory Orders Medication Instructions Recorded Confirmed Buspirone HCl 10 mg PO BID 07/21/17 01/12/19 Norethindrone 0.35 mg PO DAILY 07/21/17 01/12/19 buPROPion [Wellbutrin Sr] 300 mg PO DAILY 07/21/17 01/12/19 Promethazine [Phenergan] 1 tab PO TID PRN 01/12/19 01/12/19 Ondansetron Odt [Zofran] 4 mg TL Q6H PRN #20 tablet 08/03/19 oxyCODONE [Roxicodone] 5 mg PO Q6H PRN #20 tablet 08/03/19 - Allergies Allergies/Adverse Reactions: Allergies Allergy/AdvReac Type Severity Reaction Status Date / Time No Known Drug Allergies Allergy Verified 01/12/19 18:30 - Social History Does the pt smoke?: No Smoking Status: Never smoker Does the pt drink ETOH?: Yes Does the pt have substance abuse?: No - Immunizations Immunizations are current?: Yes PD ED PE NORMAL - Vitals Vital signs reviewed: Yes - General General: Alert and oriented X 3, No acute distress - HEENT HEENT: Moist mucous membranes - Neck Neck: Supple, no meningeal sign - Cardiac Cardiac: RRR - Respiratory Respiratory: No respiratory distress, Clear bilaterally - Abdomen Abdomen: Soft, Other (Tender to palpation right lower quadrant McBurney's point. No peritoneal signs) - Back Back: No CVA TTP - Derm Derm: Warm and dry - Extremities Extremities: No edema - Neuro Neuro: Alert and oriented X 3 Results - Vitals Vitals: Vital Signs - 24 hr 08/03/19 08/03/19 08/03/19 17:04 18:32 19:21 Temperature 37.1 C 36.9 C Heart Rate 112 H 76 106 H Respiratory 16 14 18 Rate Blood Pressure 156/99 H 136/98 H 133/93 H O2 Saturation 100 97 100 08/03/19 08/03/19 08/03/19 21:15 21:20 21:25 Temperature 37.3 C 37.2 C 37.3 C Heart Rate 114 H 114 H 106 H Respiratory 18 20 18 Rate Blood Pressure 142/96 H 142/94 H 133/82 H O2 Saturation 100 100 100 08/03/19 08/03/19 08/03/19 21:30 21:35 21:40 Temperature 37.3 C 37.2 C 37.2 C Heart Rate 106 H 95 94 Respiratory 16 16 18 Rate Blood Pressure 135/88 H 134/88 H 133/90 H O2 Saturation 100 100 100 08/03/19 08/03/19 08/03/19 21:45 21:50 22:03 Temperature 36.8 C 36.8 C 37.1 C Heart Rate 96 99 100 Respiratory 18 14 18 Rate Blood Pressure 135/93 H 134/91 H 132/96 H O2 Saturation 100 99 100 08/03/19 08/03/19 22:16 22:31 Temperature 37.0 C 37.3 C Heart Rate 99 107 H Respiratory 18 18 Rate Blood Pressure 132/87 H 131/90 H O2 Saturation 99 98 Oxygen O2 Source Room air - Labs Labs: Laboratory Tests 08/03/19 08/03/19 08/03/19 17:30 17:30 18:23 WBC 6.6 RBC 4.66 Hgb 13.4 Hct 41.1 MCV 88.2 MCH 28.8 MCHC 32.6 RDW 12.6 Plt Count 313 MPV 9.0 Neut # (Auto) 3.6 Lymph # (Auto) 2.1 Carbon # (Auto) 0.7 Eos # (Auto) 0.2 Baso # (Auto) 0.1 Absolute Nucleated RBC 0.00 Nucleated RBC % 0.0 Sodium 143 Potassium 3.4 L Chloride 106 Carbon Dioxide 28 Anion Gap 9.0 BUN 14 Creatinine 1.0 Estimated GFR (MDRD) 64 L Glucose 86 Calcium 9.8 Total Bilirubin 0.5 AST 20 ALT 18 Alkaline Phosphatase 57 Total Protein 7.5 Albumin 4.6 Globulin 2.9 Albumin/Globulin Ratio 1.6 Lipase 41 Urine Color YELLOW Urine Clarity CLEAR Urine pH 7.0 Ur Specific [place] <=1.005 Urine Protein NEGATIVE Urine Glucose (UA) NEGATIVE Urine Ketones NEGATIVE Urine Occult Blood NEGATIVE Urine Nitrite NEGATIVE Urine Bilirubin NEGATIVE Urine Urobilinogen 0.2 (NORMAL) Ur Leukocyte Esterase NEGATIVE Ur Microscopic Review NOT INDICATED Urine Culture Comments NOT INDICATED Urine HCG, Qual NEGATIVE PD MEDICAL DECISION MAKING - ED course Complexity details: reviewed old records, reviewed results, re-evaluated patient, considered differential, d/w patient, d/w family, d/w garden consultant ED course: Patient with acute appendicitis on outpatient CT today. Labs were drawn here. Started on Zosyn. I consulted Dr. Hess, general surgery at 1730. She will come and evaluate the patient. Patient states she had a bowl of cereal at 2 PM today. Departure - Departure Disposition: ED Transfer to [facility] Clinical Impression: Appendicitis Qualifiers: Appendicitis type: acute appendicitis Acute appendicitis type: with localized peritonitis Appendicitis gangrene presence: unspecified whether gangrene present Appendicitis perforation presence: without perforation Appendicitis abscess presence: without abscess Qualified Code(s): K35.30 - Acute appendicitis with localized peritonitis, without perforation or gangrene Condition: Stable Discharge Date/Time: 08/03/19 20:25
[2019-08-03 17:42] LABS: BASOPHILS # (AUTO) 0.1 10^3/uL (0.0-0.1); BASOPHILS % (AUTO) 0.8 %; EOSINOPHILS # (AUTO) 0.2 10^3/uL (0.0-0.7); EOSINOPHILS % (AUTO) 2.9 %; HGB - HEMOGLOBIN 13.4 g/dL (12.0-16.0); LYMPHOCYTES # (AUTO) 2.1 10^3/uL (1.5-3.5); LYMPHOCYTES % (AUTO) 31.4 %; MEAN CORPUSCULAR HEMOGLOBIN 28.8 pg (27.0-31.0); MEAN CORPUSCULAR HGB CONC 32.6 g/dL (32.0-36.0); MEAN CORPUSCULAR VOLUME 88.2 fL (81.0-99.0); MONOCYTES # (AUTO) 0.7 10^3/uL (0.0-1.0); MONOCYTES % (AUTO) 10.2 %; NEUTROPHILS # (AUTO) 3.6 10^3/uL (1.5-6.6); NEUTROPHILS % (AUTO) 54.4 %; PLT - PLATELET COUNT 313 10^3/uL (130-450); RED BLOOD COUNT 4.66 10^6/uL (4.20-5.40); RED CELL DISTRIBUTION WIDTH 12.6 % (12.0-15.0); WHITE BLOOD COUNT 6.6 x10^3/uL (4.8-10.8)
[2019-08-03 17:55] LABS: ALBUMIN 4.6 g/dL (3.2-5.5); ALBUMIN/GLOBULIN RATIO 1.6 (1.0-2.2); BILIRUBIN,TOTAL 0.5 mg/dL (0.2-1.0); CALCIUM 9.8 mg/dL (8.5-10.3); TOTAL PROTEIN 7.5 g/dL (6.7-8.2)
[2019-08-03 18:38] LABS: BILIRUBIN,URINE NEGATIVE (NEGATIVE); GLUCOSE, URINE (UA) NEGATIVE (NEGATIVE); KETONES,URINE (UA) NEGATIVE (NEGATIVE); LEUKOCYTE ESTERASE, URINE NEGATIVE (NEGATIVE); NITRITE,URINE NEGATIVE (NEGATIVE); OCCULT BLOOD,URINE NEGATIVE (NEGATIVE); PROTEIN,URINE NEGATIVE (NEGATIVE); UROBILINOGEN,URINE 0.2 (NORMAL) E.U./dL (NORMAL)
[2019-08-03 19:00] LABS: CLARITY,URINE CLEAR (CLEAR); HCG UR QUAL NEGATIVE
[2019-08-03] MEDS ORDERED: MIDAZOLAM 2 MG/2 ML VIAL IVP ONE (19:27)
[2019-08-03] MEDS ORDERED: KETOROLAC 30 MG/ML VIAL IVP ONE (19:27)
[2019-08-03] MEDS ORDERED: GLYCOPYRROLATE 1 MG/5 ML VIAL IVP ONE (19:27)
[2019-08-03] MEDS ORDERED: PROPOFOL 200 MG/20 ML VIAL IVP ONE (19:27)
[2019-08-03] MEDS ORDERED: fentaNYL 250 MCG/5 ML VIAL IVP ONE (19:27)
[2019-08-03] MEDS ORDERED: NEOSTIGMINE 1 MG/1 ML 10 ML MDV IVP ONE (19:27)
--- NOTE | 2019-08-03 19:38 | HISTORY & PHYSICAL EXAMINATION ---
HPI - Admitted From Admitted from: ED - History Obtained From Records Reviewed: RN notes reviewed History obtained from: Patient - History of Present Illness Severity at the worst: reports: Moderate Pain Quality: reports: Sharp, Dull, Aching Context-Pain started w/: reports: Rest Timing: reports: Gradual onset, Constant (Constant once the pain begins and usually lasts 2-3 days), Intermittent Duration: reports: Days: (3) Improved with: reports: Nothing Worsened by: reports: Exertion, Inspiration, Eating, Movement, Palpation Associated symptoms: reports: Other (Denies) HPI Comment/Other: 34-year-old female states that she has had intermittent right lower quadrant pain for the past several months. She is saw her PCP today who ordered a CT scan, the CT scan shows tip appendicitis. Sent here for evaluation. PMH/PSH - Past Medical History Cardiovascular: positive: None Respiratory: positive: None Neuro: positive: None Endocrine/Autoimmune: positive: None GI: positive: Other : positive: None HEENT: positive: None Psych: positive: Depression, Anxiety Musculoskeletal: positive: None Derm: positive: None MRSA Hx?: No - Past Surgical History HEENT: positive: Tonsil/Adenoidectomy Social & Family Hx - Living Situation Living Arrangement: At home Living Situation: With spouse/s.o. - Social History Does the pt smoke?: No Smoking Status: Never smoker Does the pt drink ETOH?: Yes Does the pt have substance abuse?: No Meds/Allgy - Home Medications Home Medications: Ambulatory Orders Medication Instructions Recorded Confirmed Buspirone HCl 10 mg PO BID 07/21/17 01/12/19 Norethindrone 0.35 mg PO DAILY 07/21/17 01/12/19 buPROPion [Wellbutrin Sr] 300 mg PO DAILY 07/21/17 01/12/19 Promethazine [Phenergan] 1 tab PO TID PRN 01/12/19 01/12/19 - Allergies Allergies/Adverse Reactions: Allergies Allergy/AdvReac Type Severity Reaction Status Date / Time No Known Drug Allergies Allergy Verified 01/12/19 18:30 Review of Systems - Constitutional Constitutional: reports: Fatigue, Poor appetite - Eyes Eyes: denies: Pain, Irritation - Ears, Nose & Throat Ears, Nose & Throat: denies: Hearing loss, Tinnitus, Vertigo - Cardiovascular Cariovascular: denies: Irregular heart rate, Lightheadedness, Exertional dyspnea, Orthopnea - Respiratory Respiratory: denies: Cough, Sputum production, Wheezing - Gastrointestinal Gastrointestinal: reports: Abdominal pain (right lower quadrant tenderness to palpation with) - Genitourinary Genitourinary: denies: Dysuria, Frequency, Urgency, Hematuria - Musculoskeletal Musculoskeletal: denies: Muscle pain, Back pain, Stiffness - Integumentary Integumentary: denies: Rash, Pruritis - Neurological Neurological: denies: General weakness, Numbness - Psychiatric Psychiatric: denies: Depression, Anxiety - Endocrine Endocrine: denies: Intolerance to cold, Intolerance to heat - Hematologic/Lymphatic Hematologic/Lymphatic: denies: Anemia, Bruising, Blood clots, Lymphadenopathy Exam - Vital Signs Reviewed Vital Signs: Yes Vital Signs: Vital Signs x48h Temp Pulse Resp BP Pulse Ox 08/03/19 19:21 36.9 C 106 H 18 133/93 H 100 08/03/19 18:32 76 14 136/98 H 97 08/03/19 17:04 37.1 C 112 H 16 156/99 H 100 - Physical Exam General Appearance: positive: No acute distress, Alert Eyes Bilateral: positive: Normal inspection, PERRL, EOMI, No lid inflammation, Conjunctivae nml ENT: positive: ENT inspection nml, Pharynx nml, No signs of dehydration Neck: positive: Nml inspection, Trachea midline Respiratory: positive: Chest non-tender, No respiratory distress, Breath sounds nml. negative: Wheezes Cardiovascular: positive: Regular rate & rhythm, No murmur, No gallop Peripheral Pulses: positive: 2+ Abdomen: positive: Nml bowel sounds, No distention, Tenderness (Right lower quadrant. No rebound or guarding) Back: positive: Nml inspection. negative: CVA tenderness (R), CVA tenderness (L) Skin: positive: Color nml, No rash Extremities: positive: Non-tender, Full ROM, No pedal edema. negative: Joint swelling Neurologic/Psychiatric: positive: Oriented x3, CN's nml (2-12) Results - Lab Results Fish Bones: 08/03/19 17:30 08/03/19 17:30 Other Lab Results: Lab Results x24hrs 08/03/19 08/03/19 08/03/19 Range/Units 18:23 17:30 17:30 WBC 6.6 (4.8-10.8) x10^3/uL RBC 4.66 (4.20-5.40) 10^6/uL Hgb 13.4 (12.0-16.0) g/dL Hct 41.1 (37.0-47.0) % MCV 88.2 (81.0-99.0) fL MCH 28.8 (27.0-31.0) pg MCHC 32.6 (32.0-36.0) g/dL RDW 12.6 (12.0-15.0) % Plt Count 313 (130-450) 10^3/uL MPV 9.0 (7.9-10.8) fL Neut # (Auto) 3.6 (1.5-6.6) 10^3/uL Lymph # (Auto) 2.1 (1.5-3.5) 10^3/uL [place] # (Auto) 0.7 (0.0-1.0) 10^3/uL Eos # (Auto) 0.2 (0.0-0.7) 10^3/uL Baso # (Auto) 0.1 (0.0-0.1) 10^3/uL Absolute Nucleated RBC 0.00 x10^3/uL Nucleated RBC % 0.0 /100WBC Sodium 143 (135-145) mmol/L Potassium 3.4 L (3.5-5.0) mmol/L Chloride 106 (101-111) mmol/L Carbon Dioxide 28 (21-32) mmol/L Anion Gap 9.0 (6-13) BUN 14 (6-20) mg/dL Creatinine 1.0 (0.4-1.0) mg/dL Estimated GFR (MDRD) 64 L (>89) Glucose 86 (70-100) mg/dL Calcium 9.8 (8.5-10.3) mg/dL Total Bilirubin 0.5 (0.2-1.0) mg/dL AST 20 (10-42) IU/L ALT 18 (10-60) IU/L Alkaline Phosphatase 57 (42-121) IU/L Total Protein 7.5 (6.7-8.2) g/dL Albumin 4.6 (3.2-5.5) g/dL Globulin 2.9 (2.1-4.2) g/dL Albumin/Globulin Ratio 1.6 (1.0-2.2) Lipase 41 (22-51) U/L Urine Color YELLOW Urine Clarity CLEAR (CLEAR) Urine pH 7.0 (5.0-7.5) PH Ur Specific [place] <=1.005 (1.002-1.030) Urine Protein NEGATIVE (NEGATIVE) mg/dL Urine Glucose (UA) NEGATIVE (NEGATIVE) mg/dL Urine Ketones NEGATIVE (NEGATIVE) mg/dL Urine Occult Blood NEGATIVE (NEGATIVE) Urine Nitrite NEGATIVE (NEGATIVE) Urine Bilirubin NEGATIVE (NEGATIVE) Urine Urobilinogen 0.2 (NORMAL) (NORMAL) E.U./dL Ur Leukocyte Esterase NEGATIVE (NEGATIVE) Ur Microscopic Review NOT INDICATED Urine Culture Comments NOT INDICATED Urine HCG, Qual NEGATIVE - Diagnostic Imaging Results Diagnostic Imaging Results: positive: Final report reviewed Diagnostic Imaging Results Comments: Final Report PT NAME: PAOLO RODRIGUEZ MR#: [id number] REG CLI/DI AGE: 34 CI DT/TM: 08/03/1902/14/2019 PCP: Linette Colindres DO : 1985 ATT: Linette thurman DO SEX: F ORD: Linette new DO EXAM: [id number] CT/ABPEW ([id number]) Reason: RIGHT LOWER QUADRANT PAIN Procedure Date: 08/03/2019 Accession Number: [id number] / [id number] Procedure: CT - Abdomen/Pelvis W CPT Code: Final Report FULL RESULT: EXAM: CT ABDOMEN AND PELVIS WITH IV CONTRAST EXAM DATE: 08/03/2019 07:34 AM. CLINICAL HISTORY: Right lower quadrant pain. COMPARISONS: ABDOMEN 1 VIEW 10/24/2017. TECHNIQUE: Routine helical CT imaging was performed through the abdomen and pelvis. IV contrast: Optiray 320, 90 mL. Enteric contrast: Yes. Reconstructions: Coronal and sagittal. In accordance with CT protocol optimization, one or more of the following dose reduction techniques were utilized for this exam: automated exposure control, adjustment of mA and/or KV based on patient size, or use of iterative reconstructive technique. FINDINGS: Lung Bases: Unremarkable. Liver: Normal. No masses. Gallbladder/Bile Ducts: Unremarkable. Spleen: Normal. Pancreas: Normal. Adrenal Glands: Normal. Kidneys: Normal. No masses or hydronephrosis. Peritoneal Cavity/Bowel: The appendix demonstrates periappendiceal fat stranding and measures up to 1.1 cm in caliber at the tip, location is retrocecal with contrast entering the base of the appendix but unable to progress. There is no associated free fluid or fluid collection. There is no free air. There is no bowel obstruction. There is no pathologic enlargement of lymph nodes. Pelvic Organs: A calcification in the region of the left ureterovesical junction is also demonstrated on a 2018 abdominal radiograph and there is no upstream hydroureteronephrosis to suggest that this is a ureteral calculus. Urinary bladder is distended. Vasculature: No aneurysms or other significant abnormality. Bones: No significant abnormality. Other: None. IMPRESSION: Uncomplicated acute appendicitis. Please note retrocecal appendix for surgical approach. [facility] The call report notification system was initiated by Dr. Andre Whitaker at 03:48 PM on 08/03/2019. The above call report findings were discussed with JEN Cabrera on behalf of Linette Colindres by Dr. Andre Whitaker at 03:54 PM on 08/03/2019. She shared that the diagnosis of acute appendicitis was indeed the clinical concern and agreed to contact the patient immediately. Fiberglass Quality Technician: Reading Radiologist: Andre Whitaker MD Releasing Radiologist: Andre Whitaker MD Released Date Time: 08/03/191553 Report [id number] cc: Linette Colindres DO Principal Recruiting Assistant Name: Andre Whitaker Provider ID: [id number] Impression/Plan - Problem List Problem List: Acute appendicitis - I have recommended proceeding to the OR for Laparoscopic Appendectomy. We have discussed the risks and benefits of the procedure and the patient has expressed a desire to complete it this evening
--- NOTE | 2019-08-03 19:39 | ANESTHESIA ---
Pre-Anesthesia VS, & Labs - Diagnosis Appendicitis - Procedure Lap appy Vital Signs: Temp Pulse Resp BP Pulse Ox 36.9 C 106 H 18 133/93 H 100 08/03/19 19:21 08/03/19 19:21 08/03/19 19:21 08/03/19 19:21 08/03/19 19:21 Height 5 ft 8 in Weight (kg) 81.647 kg Body Mass Index 27.3 - NPO Other (bowl of cereal at 1400) - Is Patient ?: No - Lab Results Current Lab Results: Laboratory Tests 08/03/19 17:30: Sodium 143, Potassium 3.4 L, Chloride 106, Carbon Dioxide 28, Anion Gap 9.0, BUN 14, Creatinine 1.0, Estimated GFR (MDRD) 64 L, Glucose 86, Calcium 9.8, Total Bilirubin 0.5, AST 20, ALT 18, Alkaline Phosphatase 57, Total Protein 7.5, Albumin 4.6, Globulin 2.9, Albumin/Globulin Ratio 1.6, Lipase 41 08/03/19 17:30: WBC 6.6, RBC 4.66, Hgb 13.4, Hct 41.1, MCV 88.2, MCH 28.8, MCHC 32.6, RDW 12.6, Plt Count 313, MPV 9.0, Neut # (Auto) 3.6, Lymph # (Auto) 2.1, Long # (Auto) 0.7, Eos # (Auto) 0.2, Baso # (Auto) 0.1, Absolute Nucleated RBC 0.00, Nucleated RBC % 0.0 Lab results reviewed: Yes Fish Bones: 08/03/19 17:30 08/03/19 17:30 Home Medications and Allergies Active Medications Lactated Ringer's (Lr) 1,000 mls @ 150 mls/hr IV .Q6H40M STA Stop: 08/04/19 00:08 Last Admin: 08/03/19 17:43 Dose: 150 mls/hr Levofloxacin (Levaquin 500 Mg/100 Ml) 500 mg in 100 mls @ 100 mls/hr IV Q24H TITO Buspirone HCl 10 mg PO BID 07/21/17 Norethindrone 0.35 mg PO DAILY 07/21/17 buPROPion [Wellbutrin Sr] 300 mg PO DAILY 07/21/17 Promethazine [Phenergan] 1 tab PO TID PRN 01/12/19 Allergies/Adverse Reactions: Allergies Allergy/AdvReac Type Severity Reaction Status Date / Time No Known Drug Allergies Allergy Verified 01/12/19 18:30 Anes History & Medical History - Anesthetic History Anesthesia Complications: reports: No previous complications Family history of Anesthesia Complications: Denies Family history of Malignant Hyperthermia: Denies - Medical History Cardiovascular: reports: None Pulmonary: reports: None Gastrointestinal: reports: Other Urinary: reports: None Neuro: reports: None Musculoskeletal: reports: None Endocrine/Autoimmune: reports: None Blood Disorders: reports: None Skin: reports: None Smoking Status: Never smoker Psychosocial: reports: No issues indicated - Surgical History Eyes Ears Nose Throat (EENT): Tonsil/Adenoidectomy Exam General: Alert, Oriented x3 Dental: WNL Mouth Openin Fingerbreadth Neck Mobility: Normal Mallampati classification: II Thyromental Distance: greater than 6 cm Respiratory: Lungs clear Cardiovascular: Regular rate Neurological: Normal speech Mental/Cognitive Status: Alert/Oriented X3, Normal for patient, Alert Cognitive Status: Within normal limits Plan Anesthesia Type: General Consent for Procedure(s) Verified and Reviewed: Yes Code Status: Attempt Resuscitation ASA classification: 2-Mild systemic disease Is this case an emergency?: Yes
[2019-08-03] MEDS ORDERED: oxyCODONE/ACET 5/325 Prepack 4 PO STA (19:56)
[2019-08-03] MEDS ORDERED: levoFLOXacin 500 MG/100 ML 500 MG/100 ML BAG IV SCH (20:00)
[2019-08-03] MEDS ORDERED: LIDOCAINE 1% 50 ML MDV SUBQ ONE ×2 (20:28)
[2019-08-03] MEDS ORDERED: BUPIVACAINE 0.5%-EPI 1:200000 PF 30 ML VIAL SUBQ ONE ×2 (20:29)
[2019-08-03] MEDS ORDERED: LACTATED RINGERS 1,000 ML IV ONE ×3 (21:04→21:36)
[2019-08-03] MEDS ORDERED: SCOPOLAMINE PATCH TOP ONE (21:10)
--- NOTE | 2019-08-03 21:11 | OPERATIVE REPORT ---
Operative Report - General Procedure Date: 08/03/19 Planned Procedure: Laparoscopic appendectomy Pre-Op Diagnosis: Acute appendicitis Procedure Performed: Laparoscopic appendectomy Post Op Diagnosis: Same - Procedure Note Primary Surgeon: Deshawn Anesthesia Provider: JACKIE Corea Anesthesia Technique: General ET tube, Local Pathology: Appendix in formalin to pathology Estimated Blood Loss (mL): 20 Findings: Early acute appendicitis Intra-abdominal adhesions in the absence of a history of abdominal surgery Complications: none apparent - Other Other Information/Narrative: After obtaining informed consent, the patient is brought to the operating room and placed in the supine position on the operating table. Following successful induction of general endotracheal anesthesia, appropriate padding of all bony prominences, and placement of appropriate monitors, the abdomen was prepped and draped in the standard surgical fashion. A timeout was held per scope protocol. All elements of the surgical safety checklist were followed before, during, and after the procedure. We began the procedure by infiltrating a mixture of local anesthetics inferior to the umbilicus to create a field block. An incision was created here and carried down through the skin and subcutaneous tissue to reveal the fascia below. 2-0 Vicryl retention sutures were placed on either side of the midline and the abdomen was entered under direct vision using a 15 blade scalpel. A 10 mm blunt Roque balloon trocar was placed in the abdominal cavity and it was insufflated to 15 mmHg pressure. The patient was placed in Trendelenburg position with the left side rotated toward the floor. A second 5 mm trocar was placed in the epigastrium and a third trocar, also 5 mm was placed in the right upper quadrant. The appendix was identified and easily elevated. It appeared normal with the exception of the tip of it which was mildly inflamed. A window was created in the mesentery of the appendix. A YANN stapling device was used to divide the appendix at its attachment to the cecum. A second load was used to divide its mesentery into liberated completely. It was placed in an endoscopic catchment bag and removed by the umbilical port with a camera in the epigastric position. The abdomen was then checked for hemostasis. It was irrigated with proximally 500 mL of warm saline solution and aspirated free of all fluid and particulate matter. A cursory examiner nation of the abdominal cavity revealed some right upper quadrant and right lower quadrant adhesions involving the colon and the liver that are somewhat unusual in the absence of any history of pelvic inflammatory disease or prior abdominal surgery. The remainder of the examination was essentially normal the trochars were removed under direct vision. The abdomen was desufflated. The umbilical incision was closed with interrupted 0 Vicryl suture and Monocryl stitches were placed in all of the skin incisions. All sponge, needle, and instrument counts were correct at the conclusion of the case. The patient was allowed awaken from anesthesia without difficulty and taken to the postanesthesia care unit in good condition.
[2019-08-03] MEDS ORDERED: IBUPROFEN 600 MG TABLET PO PRN (21:12)
[2019-08-03] MEDS ORDERED: ONDANSETRON 4 MG/2 ML VIAL IVP PRN (21:12)
[2019-08-03] MEDS: HYDROmorphone 0.5 MG/0.5 ML SYRINGE ONE ×2 (21:45→21:53)
[2019-08-03] MEDS ORDERED: ONDANSETRON 4 MG/2 ML VIAL ONE (22:03)
[2019-08-03] MEDS: ACETAMINOPHEN 325 MG TABLET PO PRN (23:17)
[2019-08-03] MEDS: oxyCODONE 5 MG TABLET PO PRN (23:17)
[2019-08-04] MEDS: oxyCODONE 5 MG TABLET PO PRN (04:15)
[2019-08-04 07:26] VITALS: BP 140/89
[2019-08-04] MEDS: ACETAMINOPHEN 325 MG TABLET PO PRN (07:45)
== END 2019-08-04 10:55 | disposition home or self-care (01) ==
LOC: ED 16:59 → SDS 19:26 → MS2 21:58 → SDS 08-04 10:55
PROVIDERS: ATTEND Surgery
PROC: 0DTJ4ZZ Resection of Appendix, Percutaneous Endoscopic Approach (ICD-10-PCS; principal; 2019-08-03 19:22)
DX: K35.30 Acute appendicitis with localized peritonitis, without perforation or gangrene (principal); K66.0 Peritoneal adhesions (postprocedural) (postinfection)
CPT/HCPCS: 36415; 44970; 74177; 80053; 81003; 81025; 83690; 85025; 96365; 99285; A9270; J1170; J3010; J3490; J7120; Q9967; 81001; 87086

== ENCOUNTER 2019-08-06 07:47 | Emergency (ER) | payer OTHER ==
--- NOTE | 2019-08-06 08:00 | ED Physician Documentation ---
PD HPI OPHTHO - Stated complaint Stated Complaint: RT EYE PX - History obtained from History obtained from: Patient - History of Present Illness Timing - onset: Yesterday Timing - duration: Hours (18) Timing - details: Abrupt onset Pain level max: 7 Pain level now: 2 Location: Right Associated symptoms: Photophobia, Decreased vision, Headache. No: Redness, Swelling, Tearing, Discharge, Matting, FB sensation Contributing factors: No: Exposed to conjunctivitis, Recent URI Similar symptoms before: Has not had sx before Recently seen: Surgery (Status post appendectomy 3 days ago) - Additional information Additional information: This a 34-year-old woman who presents with complaints that she had an appendectomy 3 days ago was discharged 2 days ago and was doing well. Then yesterday afternoon she coughed and immediately after had sudden onset of an intense headache that she rates at a 7 out of 10 behind the right eye. This was around 3:30 in the afternoon yesterday she noticed that her vision was getting a little weird and the headache was like getting more severe she was afraid to take anything because she taken Percocet for her abdominal pain after her appendectomy. She went to bed and through the night was waking up with pressure behind the right eye but the headache was slowly decreasing to the point it is now a 2 out of 10. When she got up this morning she looked in the mirror and realized that her right pupil was dilated and not responding to light. She has not put any drops in the eye. She does wear contacts but she has not had a min since she had the surgery. She is been feeling little dizzy off and on since she had the surgery and did not really related to this headache. She did have some nausea and vomited once yesterday after the headache onset. She did not eat dinner last night and had a piece of toast this morning. She denied any associated numbness or tingling or weakness into the arms or legs. The patient does have a history of migraines since she was a teen she been evaluated at the headache clinic in [place] but this was different than her typical migraine which has a very slow onset this was immediate. She does not know if she is had CT or MRI in the past. She does have a 4-year-old child at home. She denies any recent illnesses of sore throat stuffy nose, vomiting or diarrhea. She has not had a fever. Patient's family history significant for migraines in her mother and sister but no history of aneurysm that she is aware of. Review of Systems Constitutional: denies: Fever Eyes: reports: Decreased vision Nose: denies: Congestion Throat: denies: Sore throat Respiratory: denies: Dyspnea GI: reports: Abdominal Pain, Nausea, Vomiting. denies: Diarrhea : denies: Dysuria, Now EGA Skin: denies: Rash Neurologic: reports: Headache. denies: Generalized weakness, Focal weakness, Numbness, Difficulty speaking, Near syncope, Syncope, Confused, Altered mental status, Head injury Endocrine: reports: Other (She is not diabetic.) PD PAST MEDICAL HISTORY - Past Medical History Cardiovascular: None Respiratory: None Neuro: None Endocrine/Autoimmune: None GI: Other (Chronic nausea.) : None HEENT: None Psych: Depression, Anxiety Musculoskeletal: None Derm: None - Past Surgical History Past Surgical History: Yes HEENT: Tonsil/Adenoidectomy - Present Medications Home Medications: Ambulatory Orders Medication Instructions Recorded Confirmed Buspirone HCl 10 mg PO BID 07/21/17 01/12/19 Norethindrone 0.35 mg PO DAILY 07/21/17 01/12/19 buPROPion [Wellbutrin Sr] 300 mg PO DAILY 07/21/17 01/12/19 Promethazine [Phenergan] 1 tab PO TID PRN 01/12/19 01/12/19 Ondansetron Odt [Zofran] 4 mg TL Q6H PRN #20 tablet 08/03/19 oxyCODONE [Roxicodone] 5 mg PO Q6H PRN #20 tablet 08/03/19 - Allergies Allergies/Adverse Reactions: Allergies Allergy/AdvReac Type Severity Reaction Status Date / Time No Known Drug Allergies Allergy Verified 08/06/19 08:02 - Social History Does the pt smoke?: No Smoking Status: Never smoker Does the pt drink ETOH?: Yes Does the pt have substance abuse?: No - Immunizations Immunizations are current?: Yes PD ED PE NORMAL - Vitals Vital signs reviewed: Yes - General General: Alert and oriented X 3, No acute distress, Well developed/nourished - HEENT HEENT: Atraumatic, EOMI, Moist mucous membranes, Pharynx benign, Other (The right pupil is fixed and dilated. The left is responsive. Conjunctiva is clear and the corneas are clear. Visual acuity is noted. Fingertip pressures are symmetrical. Extraocular muscles are intact. There is no ptosis. Intraocular pressure was 17 in the right eye.) - Neck Neck: Supple, no meningeal sign - Cardiac Cardiac: RRR - Respiratory Respiratory: No respiratory distress - Derm Derm: Normal color, Warm and dry, No rash - Neuro Neuro: Alert and oriented X 3, No motor deficit, No sensory deficit, Normal speech, Other (Cranial nerves II through XII are intact other than the right pupillary dilation) - Psych Psych: Normal mood, Normal affect Results - Vitals Vitals: Vital Signs - 24 hr 08/06/19 08/06/19 08/06/19 07:59 08:19 10:12 Temperature 36.7 C Heart Rate 106 H 73 92 Respiratory 20 14 15 Rate Blood Pressure 150/107 H 135/90 H 137/99 H O2 Saturation 100 97 100 08/06/19 13:01 Temperature Heart Rate 111 H Respiratory 20 Rate Blood Pressure 131/88 H O2 Saturation 99 Oxygen O2 Source Room air - Labs Labs: Laboratory Tests 08/06/19 08/06/19 08:57 08:57 WBC 7.2 RBC 4.63 Hgb 13.3 Hct 40.9 MCV 88.3 MCH 28.7 MCHC 32.5 RDW 12.2 Plt Count 330 MPV 9.0 Neut # (Auto) 5.1 Lymph # (Auto) 1.2 L [place] # (Auto) 0.6 Eos # (Auto) 0.2 Baso # (Auto) 0.1 Absolute Nucleated RBC 0.00 Nucleated RBC % 0.0 Sodium 141 Potassium 3.3 L Chloride 103 Carbon Dioxide 28 Anion Gap 10.0 BUN 13 Creatinine 0.9 Estimated GFR (MDRD) 73 L Glucose 125 H Calcium 9.5 PD MEDICAL DECISION MAKING - ED course Complexity details: reviewed results, re-evaluated patient, d/w patient, d/w family, d/w medical consultant ED course: I was concerned about the possibility of an expanding aneurysm causing a 3rd nerve palsy and was able to order an MRI MRA and MRV today. These have been read as showing no definitive etiology for the dilated pupil. I wanted to talk with the neurologist and spoke with a Dr. Leary with [facility]. After lengthy discussion and the fact that on reevaluation the patient's pupil is now responding even though it still a little bit larger, she felt the patient could be evaluated on an outpatient basis both with neurology follow-up and ophthalmology referral. She is going to arrange those referrals. Patient is adamant that she did not get anything in the eye, However with the pupil now reacting I am still suspicious that there could have been a pharmacologic agent. - Critical Care Time(min): 45 Time Includes: Direct patient care, Review records, Reassess patient, Document care, Coordinate care, Medical consult Data interpretation: Labs, See progress note (Imaging) Departure - Departure Disposition: Home, Self Care Clinical Impression: Episodic mydriasis of right eye Condition: Good Instructions: ED Cephalgia Unspecified Follow-Up: Linette Colindres DO [Primary Care Provider] - [facility] [Other] Comments: May take Tylenol for any headache. The pupillary dilation seems to be rebound resolving. I would be very careful not to put any thing in the eye or rub around her eye that could get any substances in it. You should be contacted by neurology clinic at [facility] for an outpatient follow-up where they can review the MRIs and decide what further management is warranted. If you have more severe headache, develop a fever have more acute changes in your vision such as double vision or drooping of the eyelid or face you should return immediately for reevaluation. Discharge Date/Time: 08/06/19 16:22
[2019-08-06] MEDS ORDERED: LORazepam 2 MG/ML VIAL IVP STA (08:43)
[2019-08-06] MEDS ORDERED: TETRACAINE 0.5% OPHTH DROPS 4 ML RIGHTEYE ONE (08:44)
[2019-08-06 09:15] LABS: BASOPHILS # (AUTO) 0.1 10^3/uL (0.0-0.1); BASOPHILS % (AUTO) 0.7 %; EOSINOPHILS # (AUTO) 0.2 10^3/uL (0.0-0.7); EOSINOPHILS % (AUTO) 2.1 %; HGB - HEMOGLOBIN 13.3 g/dL (12.0-16.0); LYMPHOCYTES # (AUTO) 1.2 10^3/uL (1.5-3.5); LYMPHOCYTES % (AUTO) 17.3 %; MEAN CORPUSCULAR HEMOGLOBIN 28.7 pg (27.0-31.0); MEAN CORPUSCULAR HGB CONC 32.5 g/dL (32.0-36.0); MEAN CORPUSCULAR VOLUME 88.3 fL (81.0-99.0); MONOCYTES # (AUTO) 0.6 10^3/uL (0.0-1.0); MONOCYTES % (AUTO) 8.8 %; NEUTROPHILS # (AUTO) 5.1 10^3/uL (1.5-6.6); NEUTROPHILS % (AUTO) 70.8 %; PLT - PLATELET COUNT 330 10^3/uL (130-450); RED BLOOD COUNT 4.63 10^6/uL (4.20-5.40); RED CELL DISTRIBUTION WIDTH 12.2 % (12.0-15.0); WHITE BLOOD COUNT 7.2 x10^3/uL (4.8-10.8)
[2019-08-06 09:26] LABS: CALCIUM 9.5 mg/dL (8.5-10.3); CREATININE 0.9 mg/dL (0.4-1.0)
--- NOTE | 2019-08-06 12:40 | MRI Report ---
Reason: 3rd nerve palsy Procedure Date: 08/06/2019 Accession Number: [id number] / [id number] Procedure: MRI - Angio Brain W/O (MRA) CPT Code: Final Report FULL RESULT: MR ANGIOGRAM HEAD INDICATION: 34-year-old female with 3rd nerve palsy. TECHNIQUE: 3D [id number] MR angiography. COMPARISON: None. FINDINGS: The internal carotid arteries appear widely patent bilaterally. No ICA aneurysm is identified. There appear to be infundibular origins for the posterior communicating arteries bilaterally. These should not be mistaken for aneurysms. The A1 segment of the left anterior cerebral artery is mildly hypoplastic with dominant right A1 segment. Anterior communicating artery is demonstrated. There appears to be good flow related enhancement in the imaged ZACHARIAH branches bilaterally. Of the middle cerebral arteries are unremarkable. No aneurysm is demonstrated and there is no evidence of occlusion or hemodynamically significant stenosis affecting main branches of either MCA. The right vertebral artery is hypoplastic. It effectively terminates intracranially as the right PICA. The distal V4 segment is extremely tiny. This represents a known anatomical variant. The left vertebral artery and the left PICA are widely patent. The basilar artery is small but patent throughout. There appears to be good flow related enhancement in the superior cerebellar arteries bilaterally. The right DIVISION ORDER TECHNICIAN is patent without significant stenosis. There is a patent right posterior communicating artery. The P1 segment for the left posterior cerebral artery is either extremely hypoplastic or developmentally absent. There is a large left posterior communicating artery that supplies the P2 and distal left DIVISION ORDER TECHNICIAN branches. This represents a known anatomical variant ( origin of the left DIVISION ORDER TECHNICIAN). No aneurysms are seen arising from the basilar artery trunk or apex. IMPRESSION: 1. There are normal anatomical variants as above. 2. Otherwise unremarkable intracranial MR angiogram. In particular, no posterior communicating artery or superior cerebellar artery aneurysm is identified to suggest a potential etiology for an oculomotor nerve palsy.
--- NOTE | 2019-08-06 12:58 | MRI Report ---
Reason: 3rd nerve palsy Procedure Date: 08/06/2019 Accession Number: [id number] / [id number] Procedure: MRI - MRV-Brain Venous W/O CPT Code: Final Report FULL RESULT: MR VENOGRAM HEAD WITHOUT CONTRAST INDICATION: 34-year-old female with 3rd nerve palsy. TECHNIQUE: 3D [id number] MR venography. COMPARISON: None. FINDINGS: There is good flow-related enhancement throughout the superior sagittal sinus and in multiple cortical veins over the cerebral convexities bilaterally. In addition, flow-related enhancement is seen in the transverse and sigmoid sinuses and the upper internal jugular veins bilaterally. There is flow-related enhancement throughout the deep venous system. IMPRESSION: Normal [id number] MR venogram. No evidence of dural venous sinus thrombosis. RADIA
[2019-08-06 13:01] VITALS: BP 131/88
[2019-08-06] MEDS ORDERED: GADOBUTROL 10 MMOL/10 ML VIAL IVP ONE (13:13)
--- NOTE | 2019-08-06 13:52 | MRI Report ---
Reason: 3rd nerve palsy Procedure Date: 08/06/2019 Accession Number: [id number] / [id number] Procedure: MRI - Brain W/WO CPT Code: Final Report FULL RESULT: MRI BRAIN WITHOUT AND WITH CONTRAST INDICATION: 34-year-old female with 3rd nerve palsy. TECHNIQUE: 1. T1 sagittal and fat saturated T2 coronal. 2. Axial T1 MP-RAGE, FLAIR, T2, T2*GRE and DWI. 3. 10 cc IV Gadavist. T1 3D MP-RAGE axial. COMPARISON: None. FINDINGS: Ventricular size is normal. In the subcortical white matter, in the lateral aspect of the posterior right cerebral hemisphere (in the vicinity of the temporoparietal junction), there is a cluster of numerous very small, rounded T2 hyperintensities that extend over a distance of roughly 2.9 cm maximal AP x roughly 1.9 cm transverse and 2 cm craniocaudad (see image 13 of series 701 and see image 19 of series 901). There is no enhancement on the postcontrast sequence. In addition, no positive mass effect is demonstrated. 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 Differential diagnostic considerations would include a dysembryoplastic neuroepithelial tumor (DNET). Scattered punctate T2 hyperintensities are seen in the white matter at the frontal poles. The signal intensity of cortex and white matter is otherwise unremarkable. In particular, no brainstem lesion is demonstrated. There appear to be flow voids for the main intracranial arteries. No abnormal diffusion restriction is demonstrated. There is no evidence of acute or chronic hemorrhage on the T2*GRE sequence. There is a tiny, subtle blush-like focus of enhancement in the midline, ventral aspect of the upper osito (image 44 of series 1002). There is no obvious corresponding signal abnormality on T2 or FLAIR axial sequences. This most likely represents a capillary telangiectasia or similar vascular abnormality. No other enhancing intra-axial or extra-axial mass lesion is identified. No pathologic meningeal or cranial nerve enhancement is identified. In particular, no obvious abnormal enhancement of either oculomotor nerve is demonstrated. The configuration of pituitary tissue in the sella is unusual, the tissue being thickest in the anterior half of the sella. This may relate to early empty sella syndrome (herniation of arachnoid through the diaphragma sella with associated mass effect on the superior surface of the pituitary gland). The pituitary tissue appears to enhance uniformly. Limited evaluation of the orbits reveals no gross pathology. There is mild mucosal thickening scattered throughout the ethmoid air cells. A mucous retention cyst is identified in the right maxillary sinus. The paranasal sinuses are otherwise clear. No mastoid or middle ear effusion. IMPRESSION: 1. A cluster of small rounded T2 hyperintensities is demonstrated in the subcortical white matter, laterally at the right temporoparietal junction. There is no enhancement or positive mass effect. 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 Differential diagnostic considerations would include a dysembryoplastic neuroepithelial tumor (DNET). 2. 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 3. Imaging of the brain is otherwise unremarkable. In particular, no midbrain lesion is identified to suggest a potential etiology for an oculomotor nerve palsy. 4. Noted is an unusual configuration of pituitary tissue in the sella suggesting the possibility of early "empty sella syndrome." See discussion above.
[2019-08-06] MEDS ORDERED: ACETAMINOPHEN 325 MG TABLET PO STA (14:39)
== END 2019-08-06 16:22 | disposition home or self-care (01) ==
LOC: ED 07:47
DX: H57.04 Mydriasis (principal); R51 Headache; Z98.890 Other specified postprocedural states
CPT/HCPCS: 36415; 70544; 70553; 80048; 85025; 96374; 96375; 99284; 99291; A9270; J2060

== ENCOUNTER 2019-10-07 15:39 | Emergency (ER) | payer OTHER ==
--- NOTE | 2019-10-07 16:04 | ED Physician Documentation ---
PD HPI ABD PAIN - Stated complaint Stated Complaint: VOMITTING BLOOD, N/V - Chief complaint Chief Complaint: Abd Pain - History obtained from History obtained from: Patient (34-year-old woman with history of migraines, idiopathic gastroparesis and depression has had diarrhea ever since she had her Appendix out in early July. Usually about 3-4 times a day. [place]-tinged and never bloody. She did have a remote history of C. difficile infection at age 20 but not since. She is also had a sour stomach but no abdominal pain. Today she had 2 episodes of vomiting that were blood-tinged. No fevers.) Review of Systems Constitutional: denies: Fever, Chills Cardiac: denies: Chest pain / pressure, Palpitations Respiratory: denies: Dyspnea, Cough GI: denies: Abdominal Pain, Constipation, Bloody / black stool PD PAST MEDICAL HISTORY - Past Medical History Past Medical History: Yes Cardiovascular: None Respiratory: None Neuro: Headaches, Migraines Endocrine/Autoimmune: None GI: Other RANCH COOK: None : None HEENT: None Psych: Depression, Anxiety Musculoskeletal: None Derm: None Other Past Medical History: gastroproisis - Past Surgical History Past Surgical History: Yes HEENT: Tonsil/Adenoidectomy - Present Medications Home Medications: Ambulatory Orders Medication Instructions Recorded Confirmed Buspirone HCl 10 mg PO BID 07/21/17 01/12/19 Norethindrone 0.35 mg PO DAILY 07/21/17 01/12/19 buPROPion [Wellbutrin Sr] 300 mg PO DAILY 07/21/17 01/12/19 Promethazine [Phenergan] 1 tab PO TID PRN 01/12/19 01/12/19 Ondansetron Odt [Zofran] 4 mg TL Q6H PRN #20 tablet 08/03/19 oxyCODONE [Roxicodone] 5 mg PO Q6H PRN #20 tablet 08/03/19 Dicyclomine [Bentyl] 20 mg PO QID PRN #15 capsule 10/07/19 Promethazine [Phenergan] 25 mg PO Q6H PRN #10 tab 10/07/19 - Allergies Allergies/Adverse Reactions: Allergies Allergy/AdvReac Type Severity Reaction Status Date / Time No Known Drug Allergies Allergy Verified 10/07/19 15:46 - Social History Does the pt smoke?: No Smoking Status: Never smoker Does the pt drink ETOH?: Yes Does the pt have substance abuse?: No - Immunizations Immunizations are current?: Yes - POLST Patient has POLST: No PD ED PE NORMAL - Vitals Vital signs reviewed: Yes - General General: Alert and oriented X 3, No acute distress - Neck Neck: Supple, no meningeal sign, No bony TTP - Cardiac Cardiac: RRR, No murmur - Respiratory Respiratory: No respiratory distress, Clear bilaterally - Abdomen Abdomen: Soft, Non tender - Derm Derm: Normal color, Warm and dry - Neuro Neuro: Alert and oriented X 3, Normal speech Results - Vitals Vitals: Vital Signs - 24 hr 10/07/19 10/07/19 15:46 18:21 Temperature 37.1 C 37.2 C Heart Rate 93 92 Respiratory 17 14 Rate Blood Pressure 149/98 H 124/93 H O2 Saturation 100 98 Oxygen O2 Source Room air - Labs Labs: Laboratory Tests 10/07/19 10/07/19 10/07/19 16:11 16:11 18:11 WBC 8.0 RBC 4.91 Hgb 13.9 Hct 42.2 MCV 85.9 MCH 28.3 MCHC 32.9 RDW 12.2 Plt Count 325 MPV 9.4 Neut # (Auto) 6.7 H Lymph # (Auto) 0.8 L [place] # (Auto) 0.3 Eos # (Auto) 0.0 Baso # (Auto) 0.0 Absolute Nucleated RBC 0.00 Nucleated RBC % 0.0 Sodium 138 Potassium 3.5 Chloride 105 Carbon Dioxide 23 Anion Gap 10.0 BUN 12 Creatinine 1.0 Estimated GFR (MDRD) 64 L Glucose 112 H Calcium 9.5 Total Bilirubin 0.7 AST 22 ALT 22 Alkaline Phosphatase 57 Total Protein 7.8 Albumin 4.9 Globulin 2.9 Albumin/Globulin Ratio 1.7 Lipase 25 Urine Color YELLOW Urine Clarity HAZY Urine pH 8.0 H Ur Specific [place] 1.015 Urine Protein NEGATIVE Urine Glucose (UA) NEGATIVE Urine Ketones TRACE Urine Occult Blood NEGATIVE Urine Nitrite NEGATIVE Urine Bilirubin NEGATIVE Urine Urobilinogen 0.2 (NORMAL) Ur Leukocyte Esterase NEGATIVE Urine RBC None Seen Urine WBC 0-3 Ur Squamous Epith Cells NONE SEEN Amorphous Sediment Moderate Urine Bacteria None Seen Ur Microscopic Review INDICATED Urine Culture Comments NOT INDICATED Urine HCG, Qual NEGATIVE PD MEDICAL DECISION MAKING - ED course ED course: 34-year-old woman with remote history of C. difficile and idiopathic gastroparesis presents with abdominal complaints, subacute diarrhea and now vomiting with blood streaks. Her work-up here was negative and she was treated stepwise with medications. Passed a p.o. challenge and remained nontender. We did collect stool with results pending. Departure - Departure Disposition: 01 Home, Self Care Clinical Impression: Vomiting Qualifiers: Vomiting type: unspecified Vomiting Intractability: unspecified Nausea presence: with nausea Qualified Code(s): R11.2 - Nausea with vomiting, unspecified Diarrhea Qualifiers: Diarrhea type: presumed infectious Qualified Code(s): R19.7 - Diarrhea, unspecified Condition: Good Record reviewed to determine appropriate education?: Yes Instructions: ED Diet Vomiting Diarrhea, ED Vomiting Diarrhea Nonspecific Ad Prescriptions: Dicyclomine [Bentyl] 20 mg PO QID PRN #15 capsule PRN Reason: Abdominal Pain Promethazine [Phenergan] 25 mg PO Q6H PRN #10 tab PRN Reason: Nausea / Vomiting Comments: If your C. difficile test or stool culture are positive we will call you, return for new or worsening symptoms. Follow-up with your doctor early next week.
[2019-10-07] MEDS: SODIUM CHLORIDE 0.9% 1,000 ML IV ONE (16:13)
[2019-10-07 16:14] LABS: BASOPHILS % (AUTO) 0.5 %; EOSINOPHILS % (AUTO) 0.4 %; HGB - HEMOGLOBIN 13.9 g/dL (12.0-16.0); LYMPHOCYTES # (AUTO) 0.8 10^3/uL (1.5-3.5); LYMPHOCYTES % (AUTO) 10.5 %; MEAN CORPUSCULAR HEMOGLOBIN 28.3 pg (27.0-31.0); MEAN CORPUSCULAR HGB CONC 32.9 g/dL (32.0-36.0); MEAN CORPUSCULAR VOLUME 85.9 fL (81.0-99.0); MEAN PLATELET VOLUME 9.4 fL (7.9-10.8); MONOCYTES # (AUTO) 0.3 10^3/uL (0.0-1.0); MONOCYTES % (AUTO) 3.9 %; NEUTROPHILS # (AUTO) 6.7 10^3/uL (1.5-6.6); NEUTROPHILS % (AUTO) 84.3 %; PLT - PLATELET COUNT 325 10^3/uL (130-450); RED BLOOD COUNT 4.91 10^6/uL (4.20-5.40); RED CELL DISTRIBUTION WIDTH 12.2 % (12.0-15.0)
[2019-10-07] MEDS: ONDANSETRON 4 MG/2 ML VIAL IVP STA (16:15)
[2019-10-07] MEDS: PANTOPRAZOLE 40 MG VIAL IVP STA (16:17)
[2019-10-07 16:28] LABS: ALBUMIN 4.9 g/dL (3.2-5.5); ALBUMIN/GLOBULIN RATIO 1.7 (1.0-2.2); BILIRUBIN,TOTAL 0.7 mg/dL (0.2-1.0); CALCIUM 9.5 mg/dL (8.5-10.3); TOTAL PROTEIN 7.8 g/dL (6.7-8.2)
[2019-10-07] MEDS: DICYCLOMINE 10 MG CAPSULE PO STA (18:19)
[2019-10-07] MEDS: METOCLOPRAMIDE 10 MG/2 ML VIAL IVP STA (18:20)
[2019-10-07 18:21] VITALS: BP 124/93
[2019-10-07 18:29] LABS: BILIRUBIN,URINE NEGATIVE (NEGATIVE); GLUCOSE, URINE (UA) NEGATIVE (NEGATIVE); KETONES,URINE (UA) TRACE mg/dL (NEGATIVE); LEUKOCYTE ESTERASE, URINE NEGATIVE (NEGATIVE); NITRITE,URINE NEGATIVE (NEGATIVE); OCCULT BLOOD,URINE NEGATIVE (NEGATIVE); PROTEIN,URINE NEGATIVE (NEGATIVE); UROBILINOGEN,URINE 0.2 (NORMAL) E.U./dL (NORMAL)
[2019-10-07 18:42] LABS: CLARITY,URINE HAZY (CLEAR); HCG UR QUAL NEGATIVE
[2019-10-07 18:43] LABS: AMORPHOUS SEDIMENT,UR Moderate /LPF; BACTERIA,URINE None Seen /HPF (None Seen); RBC,URINE None Seen /HPF (0-5); SQUAMOUS EPITHELIAL CELL,UR NONE SEEN (<= Few)
== END 2019-10-07 19:08 | disposition home or self-care (01) ==
LOC: ED 15:39
DX: K92.0 Hematemesis (principal); R19.7 Diarrhea, unspecified; F32.9 Major depressive disorder, single episode, unspecified; Z86.19 Personal history of other infectious and parasitic diseases; Z87.19 Personal history of other diseases of the digestive system; Z79.899 Other long term (current) drug therapy; Z86.69 Personal history of other diseases of the nervous system and sense organs
CPT/HCPCS: 36415; 80053; 81001; 81003; 81025; 83690; 85025; 87045; 87046; 87086; 87493; 96361; 96374; 96375; 99284

== ENCOUNTER 2019-10-08 08:00 | Outpatient (CLI) | payer OTHER | END 2019-10-08 23:59 | disposition home or self-care (01) | LOC: LAB.R 08:00 | PROVIDERS: ATTEND Family Medicine | DX: R19.7 Diarrhea, unspecified (principal) | CPT/HCPCS: 81599; 87045; 87046; 87177; 87209; 87329; 87493 ==

== ENCOUNTER 2019-11-16 08:00 | Outpatient (CLI) | payer OTHER ==
[2019-11-16 18:30] LABS: BASOPHILS % (AUTO) 0.3 %; EOSINOPHILS # (AUTO) 0.1 10^3/uL (0.0-0.7); EOSINOPHILS % (AUTO) 1.7 %; HGB - HEMOGLOBIN 13.4 g/dL (12.0-16.0); LYMPHOCYTES # (AUTO) 1.8 10^3/uL (1.5-3.5); LYMPHOCYTES % (AUTO) 24.9 %; MEAN CORPUSCULAR HEMOGLOBIN 27.3 pg (27.0-31.0); MEAN CORPUSCULAR HGB CONC 31.3 g/dL (32.0-36.0); MEAN CORPUSCULAR VOLUME 87.3 fL (81.0-99.0); MEAN PLATELET VOLUME 10.1 fL (7.9-10.8); MONOCYTES # (AUTO) 0.5 10^3/uL (0.0-1.0); MONOCYTES % (AUTO) 6.7 %; NEUTROPHILS # (AUTO) 4.7 10^3/uL (1.5-6.6); PLT - PLATELET COUNT 344 10^3/uL (130-450)
[2019-11-16 19:11] LABS: ALBUMIN 4.5 g/dL (3.2-5.5); ALBUMIN/GLOBULIN RATIO 1.5 (1.0-2.2); ALKALINE PHOSPHATASE 54 IU/L (42-121); ALT ALANINE AMINOTRANSFERASE 14 IU/L (10-60); AST ASPARTATE AMINOTRANSFERASE 18 IU/L (10-42); BILIRUBIN,TOTAL 0.6 mg/dL (0.2-1.0); BUN - BLOOD UREA NITROGEN 11 mg/dL (6-20); CALCIUM 9.7 mg/dL (8.5-10.3); CARBON DIOXIDE - CO2 28 mmol/L (21-32); CHLORIDE 105 mmol/L (101-111); CREATININE 0.9 mg/dL (0.4-1.0); GFR - MDRD 73 (>89); GLUCOSE 104 mg/dL (70-100); SODIUM 142 mmol/L (135-145); TOTAL PROTEIN 7.5 g/dL (6.7-8.2)
[2019-11-16 19:18] LABS: CRP - C-REACTIVE PROTEIN < 1.0 mg/dL (0-1.0)
[2019-11-17 12:42] LABS: HIV AG/AB 4TH GEN NON-REACTIVE (NON-REACTIVE)
== END 2019-11-16 23:59 | disposition home or self-care (01) ==
LOC: LAB.WCP 08:00
PROVIDERS: ATTEND Psychiatry & Neurology Neurology
DX: H53.9 Unspecified visual disturbance (principal); H57.02 Anisocoria; R90.89 Other abnormal findings on diagnostic imaging of central nervous system
CPT/HCPCS: 36415; 80053; 81599; 82164; 85025; 85651; 86038; 86140; 86480; 87389

== ENCOUNTER 2020-09-02 10:30 | Outpatient (CLI) | payer OTHER ==
--- NOTE | 2020-09-02 14:20 | XRAY Report ---
PROCEDURE: Lumbar Spine Complete INDICATIONS: LUMBAR SPONDYLOSIS TECHNIQUE: 7 views of the lumbar spine were acquired, including flexion and extension views and bila teral oblique views COMPARISON: Correlation is made with prior abdomen and pelvis CT, 08/03/2019 FINDINGS: Bones: 5 [id number] vertebrae are present. There is normal bony alignment. On flexion and ext ension views, there is no abnormal subluxation seen. No vertebral body compression fractures. No marta picious bony lesions. Mild facet arthropathy is seen inferiorly. Soft tissues: Overlying bowel gas pattern is normal. No suspicious soft tissue calcifications. IMPRESSION: No acute abnormality is seen. The disc heights are well preserved. Mild lower lumbar spine facet arthropathy is seen. No abnormal subluxation is seen on flexion and extension views. No pars defects. Reviewed by: Jorge Paz MD on 09/02/2020 1:18 PM [facility] Approved by: Jorge Paz MD on 09/02/2020 1:18 PM [facility] Station ID: [id number]
== END 2020-09-02 10:31 | disposition home or self-care (01) ==
LOC: DI 10:30
PROVIDERS: ATTEND Pain Medicine Pain Medicine
DX: M47.816 Spondylosis without myelopathy or radiculopathy, lumbar region (principal)

== ENCOUNTER 2020-09-18 17:07 | Outpatient (CLI) | payer OTHER ==
--- NOTE | 2020-09-19 09:09 | XRAY Report ---
PROCEDURE: Ribs Bilat w/Chest 4 View INDICATIONS: BILATERAL RIB PAIN AFTER FALL TECHNIQUE: 4 views of the bilateral ribs were acquired, along with a single view chest. COMPARISON: None FINDINGS: Surgical changes and devices: None. Bones and chest wall: No fractures or dislocations. No suspicious bony lesions. Overlying soft tis sues appear unremarkable. Lungs and pleura: No pleural effusions or pneumothorax. Lungs appear clear. Mediastinum: Mediastinal contours appear normal. Heart size is normal. IMPRESSION: No displaced rib fracture. No acute cardiopulmonary disease process. Reviewed by: Luh Pardo MD, PhD on 09/19/2020 9:08 AM [facility] Approved by: Luh Pardo MD, PhD on 09/19/2020 9:08 AM [facility] Station ID: [id number]
== END 2020-09-18 23:59 | disposition home or self-care (01) ==
LOC: DI.N 17:07
PROVIDERS: ATTEND Nurse Practitioner
DX: R07.81 Pleurodynia (principal); W19.XXXA Unspecified fall, initial encounter

== ENCOUNTER 2021-03-03 14:38 | Outpatient (CLI) | payer OTHER ==
--- NOTE | 2021-03-03 15:37 | XRAY Report ---
PROCEDURE: Ankle 3 View LT INDICATIONS: LEFT ANKLE INJURY TECHNIQUE: 3 views of the ankle were acquired. COMPARISON: None FINDINGS: Bones: No fractures or dislocations. Ankle mortise is normally aligned. No suspicious bony lesions . Soft tissues: No tibiotalar joint effusion. Achilles tendon appears normal. IMPRESSION: No trauma found. Reviewed by: Bon Farrell MD on 03/03/2021 2:36 PM [facility] Approved by: Bon Farrell MD on 03/03/2021 2:36 PM [facility] Station ID: [id number]
== END 2021-03-03 14:39 | disposition home or self-care (01) ==
LOC: DI.N 14:38
PROVIDERS: ATTEND Physician Assistant Medical
DX: S93.402A Sprain of unspecified ligament of left ankle, initial encounter (principal)

== ENCOUNTER 2021-04-29 18:05 | Outpatient (CLI) | payer OTHER | END 2021-04-29 18:06 | disposition EMS.NT | LOC: EMS 18:05 | DX: K59.00 Constipation, unspecified (principal) ==

== ENCOUNTER 2021-07-18 15:22 | Outpatient (CLI) | payer OTHER ==
[2021-07-18 18:00] LABS: BASOPHILS # (AUTO) 0.1 10^3/uL (0.0-0.1); BASOPHILS % (AUTO) 1.3 %; EOSINOPHILS # (AUTO) 0.1 10^3/uL (0.0-0.7); EOSINOPHILS % (AUTO) 2.2 %; HCT - HEMATOCRIT 43.4 % (37.0-47.0); LYMPHOCYTES # (AUTO) 1.7 10^3/uL (1.5-3.5); LYMPHOCYTES % (AUTO) 30.6 %; MEAN CORPUSCULAR HEMOGLOBIN 29.4 pg (27.0-31.0); MEAN CORPUSCULAR HGB CONC 32.3 g/dL (32.0-36.0); MEAN CORPUSCULAR VOLUME 91.2 fL (81.0-99.0); MEAN PLATELET VOLUME 9.7 fL (7.9-10.8); MONOCYTES # (AUTO) 0.5 10^3/uL (0.0-1.0); NEUTROPHILS # (AUTO) 3.2 10^3/uL (1.5-6.6); NEUTROPHILS % (AUTO) 56.7 %; PLT - PLATELET COUNT 327 10^3/uL (130-450); RED BLOOD COUNT 4.76 10^6/uL (4.20-5.40); RED CELL DISTRIBUTION WIDTH 12.3 % (12.0-15.0); WHITE BLOOD COUNT 5.6 x10^3/uL (4.8-10.8)
[2021-07-18 18:55] LABS: ALBUMIN 4.8 g/dL (3.2-5.5); ALBUMIN/GLOBULIN RATIO 1.8 (1.0-2.2); CALCIUM 9.4 mg/dL (8.5-10.3); POTASSIUM 3.6 mmol/L (3.5-5.0); TOTAL PROTEIN 7.5 g/dL (6.7-8.2)
[2021-07-18 19:09] LABS: THYROID STIMULATING HORMONE 0.98 uIU/mL (0.34-5.60)
== END 2021-07-18 23:59 | disposition home or self-care (01) ==
LOC: LAB.WCP 15:22
PROVIDERS: ATTEND Family Medicine
DX: R53.83 Other fatigue (principal)
CPT/HCPCS: 36415; 80053; 84443; 85025

== ENCOUNTER 2021-08-02 09:35 | Outpatient (CLI) | payer OTHER ==
[2021-08-02 10:34] VITALS: BP 123/76
--- NOTE | 2021-08-02 10:34 | SLEEP CARE CONSULTATION ---
Information from patient questionnaire entered by Rachael Archuleta MA. I have reviewed and concur with the information entered by Rachael Archuleta MA. This document represents the service I personally performed and the decisions made by , Natali Merlos ARNP. History of Present Illness Service Date and Time: 08/02/2021 0921 Reason for Visit: New patient Chief Complaint: reports: Unrefreshed sleep, Excessive daytime sleepiness, Fatigue (bad fatigue for last year), Other (memory and brain fog issues). denies: Snoring, Observed pauses in breathing Date of Onset: over a year Usual bedtime: 930 1000 Time it takes to fall asleep: 20-30 minutes Snores at night: No Observed to quit breathing while asleep: No Sleeps alone due to snoring: No Number of times waking at night: 0-3, she is a light sleeper Reasons for waking at night: reports: Pain, Bathroom, Other (noise). denies: Choking, Gasping for air Toss, Turn, or Twitch while sleeping: Yes Recalls having dreams: Yes Usually gets out of bed at: 600-630 Feels refreshed in the morning: No Morning headache: No Sleepy or fatigued during the day: Yes Ever fallen asleep while driving: No Takes day naps: Yes (3-4 times a week for 1-1.5 hours) Dreams during day naps: No Prior sleep studies: No Additional HPI information: I had the pleasure of seeing PAOLO RODRIGUEZ today regarding the possibility of her having a sleep disorder. Her current complaints are - Parasomnia Symptoms Ever been unable to move upon waking from sleep: No Walks in sleep: No Talks in sleep: No Ever acted out dreams in sleep: No Ever felt weak in the knees when startled or emotional: No Bothered by creepy, crawly, restless sensations in legs: Yes (sometimes legs, but more often arms at night in bed) Problems with memory or concentration: Yes (brain fog and memory issues) Subjective Initial [place] Sleepiness Scale score: 7 (2020) Past Medical History Past Medical History: reports: Anxiety, Asthma, Depression, Other (benign brain tumor, chronic back pain neck pain, possible partial seizures, gastroparesis) Social History The patient's occupation is a [employer]. Patient is and lives in [place]. Have you smoked in the past 12 months: No Alcohol use: Yes Alcohol amount and frequency: rarely Caffeine use: Yes Caffeine amount and frequency: 1 cup x daily Family History Family history of sleep disordered breathing: Yes Family Hx Sleep Apnea: Mother: Snoring, Sleep apnea - Untreated (in process of getting treatment) Allergies and Home Medications Known drug allergies: No Drug allergies reviewed: Yes (NKDA) Home medication list reviewed: Yes Allergy and home medication list: control, Norethindrone Cymbalta 40 mg daily Zofran, prn Nurtec 75 mg for migraines Tizanadine, prn Review of Systems Cardiovascular: denies: high blood pressure Respiratory: reports: other (mild asthma) Gastrointestinal: reports: nausea, vomitting, abdominal pain Neurological: reports: headaches, other (dizziness) Psychiatric: reports: anxiety, depression Ear/Nose/Throat: reports: nose bleeds, tonsillectomy, wisdom teeth removed Endocrine: reports: sluggishness Musculoskeletal: reports: neck pain, back pain Physical Exam Vital signs obtained and entered by: Catalino Archuleta CMA AAMA Blood Pressure: 123/76 (left) Cuff size: wrist Heart Rate: 96 O2 Saturation: 99 (with Mask) Height: 5 ft 8 in Weight: 193 lb (with boots) Body Mass Index: 29.3 BMI Classification: Overweight Neck circumference: 14 (inches) Mouth and throat: narrow oropharynx Soft palate: long Hard palate: arched Uvula: normal Uvula visualization: 50% Mallampati Class II Tongue: enlarged in size with teeth de la fuente on lateral edges Tonsils: absent bilaterally Neck: normal w/o lymphadenopathy or thyromegaly Heart: regular rate and rhythm Lungs: clear bilaterally Impression and Plan 1. Suspected Obstructive Sleep Apnea-Hypopnea Syndrome, as suggested by a history of unrefreshed sleep, cognitive impairment, and excessive daytime sleepiness. Patient has a history of depression and possible partial seizures. Narrow oropharynx and obesity are common predisposing factors for obstructive sleep apnea-hypopnea syndrome. I recommend proceeding to polysomnography to confirm the diagnosis and to assess severity. If the patient has significant sleep disordered breathing, a manual CPAP titration study will also be performed to find the optimal treatment pressure. I informed the patient of what the sleep studies involve and after some discussion, obtained agreement to proceed. The pathophysiology of obstructive sleep apnea-hypopnea syndrome was discussed with the patient and health risks of cardiovascular and cerebrovascular disease if not treated. Risks of drowsy driving discussed in detail and patient advised to avoid long distance driving and to crop puller at the first sign of drowsiness. Patient agreed to plan. * Schedule polysomnography +- manual CPAP titration study and return in 1-2 weeks after the study to discuss result and initiate therapy. * Avoid long distance driving or driving when feeling sleepy. * Avoid alcohol, sedative and muscle relaxant around bedtime. * Attempt to lose weight. * Review instructions provided by trained office staff on how to prepare for the sleep study. * Return for follow-up after sleep study completed. Counseling Topics: Weight loss health impact Visit Type: In Office Time Spent with Patient (minutes): 30 Provider Statement: I spent 100% of the Face to Face Visit with the patient with greater than 50% spent counseling the patient and coordination of care.
== END 2021-08-02 09:36 | disposition home or self-care (01) ==
LOC: SC 09:35
PROVIDERS: ATTEND Nurse Practitioner Family
DX: G47.10 Hypersomnia, unspecified (principal); R41.89 Other symptoms and signs involving cognitive functions and awareness; G47.8 Other sleep disorders; F32.9 Major depressive disorder, single episode, unspecified
CPT/HCPCS: 99203; 99212

== ENCOUNTER 2021-08-30 20:45 | Outpatient (CLI) | payer OTHER | END 2021-08-30 20:46 | disposition home or self-care (01) | LOC: SC 20:45 | PROVIDERS: ATTEND Nurse Practitioner Family | DX: G47.61 Periodic limb movement disorder (principal) | CPT/HCPCS: 95810 ==

== ENCOUNTER 2021-09-13 12:36 | Outpatient (CLI) | payer OTHER ==
[2021-09-13 13:17] VITALS: BP 120/97
--- NOTE | 2021-09-13 13:17 | SLEEP CARE CONSULTATION ---
Information from patient questionnaire entered by Rachael Archuleta MA. I have reviewed and concur with the information entered by Rachael Archuleta MA. This document represents the service I personally performed and the decisions made by , Natali Merlos ARNP. History of Present Illness Service Date and Time: 09/13/2021 1236 Initial [place] Sleepiness Scale score: 7 (2020) Current [place] Sleepiness Scale score: 8 (2020) Additional HPI information: PAOLO RODRIGUEZ returns for follow up and results of the recently performed polysomnography. The patient was informed of the following findings: No significant sleep disordered breathing with an average AHI of 0.5 and sheyla oxygen saturation of 94%. Patient was seen to have severe periodic leg movements of sleep but did not fragment her sleep. I explained the pathophysiology behind obstructive sleep apnea. Patient does not have sleep apnea and was advised how weight gain could increase the risk of developing sleep apnea in the future. I strongly encouraged the patient to lose weight. Patient was cautioned about risks of drowsy driving until sleepiness symptoms resolve. Sleep Study - Results Prior sleep studies: No Polysomnography/Home Sleep Study results: IMPRESSION: The quality of the study is good. The patient had slightly reduced sleep efficiency due to sleep onset insomnia. The sleep architecture was normal. Respiratory monitoring showed no significant sleep disordered breathing (AHI = 0.5) or hypoxia (sheyla oxygen saturation of 94%). The patient slept adequately in supine position (supine AHI = 1.1; non-supine = 0.00). Snore was light in intensity. There was severe periodic leg movement of sleep not associated with sleep fragmentation. Cardiac rhythm was normal sinus rhythm without significant arrhythmia. No abnormal behavior (parasomnia) observed during the night. Allergies and Home Medications Home medication list reviewed: Yes (changing to new antidepressant when approved by insurance) Review of Systems Review of systems same as previous: Yes (no changes) Physical Exam Vital signs obtained and entered by: LASHAUN BOLTON Blood Pressure: 120/97 (RIGHT) Cuff size: wrist Heart Rate: 101 O2 Saturation: 98 (WITH MASK) Height: 5 ft 8 in Weight: 190 lb (PER PT, WO CLOTHES) Body Mass Index: 28.8 BMI Classification: Overweight Impression and Plan 1. Periodic limb movement, severe, that did not fragment patients sleep. Periodic limb movement of sleep (PLMS) is characterized by episodes of repetitive limb movements that occur during sleep and usually involve the lower limbs. The etiology is unknown but can be associated with restless leg syndrome (RLS), a low serum ferritin level, neuropathy, spinal cord diseases, kidney disease, rheumatological disorders, narcolepsy, obstructive sleep apnea, and REM sleep behavior disorder. Caffeine can also aggravate PLMS and should be avoided. Sleep hygiene methods can also improve sleep as well as lifestyle changes such as regular exercise. AAS pamphlet on How to Sleep Better given and explained to patient. Patient was advised that no treatment is needed at this time. If symptoms increase, then further evaluation is indicated. * Attempt to lose weight * Avoid alcohol consumption near bedtime * The patient is cautioned about driving until sleepiness is completely resolved. * Return as needed. Counseling Topics: Weight loss health impact Visit Type: In Office Time Spent with Patient (minutes): 10 Provider Statement: I spent 100% of the Face to Face Visit with the patient with greater than 50% spent counseling the patient and coordination of care.
== END 2021-09-13 12:37 | disposition home or self-care (01) ==
LOC: SC 12:36
PROVIDERS: ATTEND Nurse Practitioner Family
DX: G47.61 Periodic limb movement disorder (principal)
CPT/HCPCS: 99212

== ENCOUNTER 2021-10-22 08:00 | Outpatient (CLI) | payer OTHER | END 2021-10-22 23:59 | LOC: LAB 08:00 | PROVIDERS: ATTEND Physician Assistant | DX: R35.0 Frequency of micturition (principal) | CPT/HCPCS: 87086 ==

== ENCOUNTER 2021-11-16 12:29 | Outpatient (CLI) | payer OTHER ==
--- NOTE | 2021-11-16 13:37 | Ultrasound Report ---
PROCEDURE: Pelvic w/Transvaginal INDICATIONS: PELVIC PAIN TECHNIQUE: Real-time scanning was performed of the pelvic organs, with image documentation. Additional endovagi nal scanning was necessary due to incomplete visualization of the adnexal and endometrial structures by transabdominal scanning. COMPARISON: CT abdomen/pelvis 08/03/2019. FINDINGS: No pathologic free abdominal or pelvic fluid. Uterus: Uterus is normal in size at 8.0 x 3.5 x 4.8 cm. The uterus is anteverted with homogeneous m yometrium. The endometrium measures 6 mm in combined thickness. Ovaries: Right ovary measures 2.2 x 1.8 x 2.0 cm (4.2 cc). Left ovary measures 2.9 x 2.4 x 2.2 cm (7 .8 cc). A simple left ovarian cyst/dominant follicle measures 2.0 cm in maximum dimension. IMPRESSION: No acute sonographic abnormality in the pelvis. Reviewed by: Zach Paul MD on 11/16/2021 1:35 PM PST Approved by: Zach Paul MD on 11/16/2021 1:35 PM PST Station ID: [id number]
== END 2021-11-16 12:30 | disposition home or self-care (01) ==
LOC: DI 12:29
PROVIDERS: ATTEND Nurse Practitioner Obstetrics & Gynecology
DX: R10.2 Pelvic and perineal pain (principal)

== ENCOUNTER 2021-11-29 12:41 | Outpatient (CLI) | payer OTHER ==
[2021-11-29 18:06] LABS: BASOPHILS # (AUTO) 0.1 10^3/uL (0.0-0.1); BASOPHILS % (AUTO) 0.7 %; EOSINOPHILS # (AUTO) 0.1 10^3/uL (0.0-0.7); EOSINOPHILS % (AUTO) 1.8 %; HGB - HEMOGLOBIN 13.4 g/dL (12.0-16.0); LYMPHOCYTES # (AUTO) 1.9 10^3/uL (1.5-3.5); LYMPHOCYTES % (AUTO) 25.1 %; MEAN CORPUSCULAR HEMOGLOBIN 28.8 pg (27.0-31.0); MEAN CORPUSCULAR HGB CONC 32.7 g/dL (32.0-36.0); MEAN CORPUSCULAR VOLUME 88.2 fL (81.0-99.0); MEAN PLATELET VOLUME 10.3 fL (7.9-10.8); MONOCYTES # (AUTO) 0.5 10^3/uL (0.0-1.0); MONOCYTES % (AUTO) 7.3 %; NEUTROPHILS # (AUTO) 4.8 10^3/uL (1.5-6.6); NEUTROPHILS % (AUTO) 64.8 %; PLT - PLATELET COUNT 304 10^3/uL (130-450); RED BLOOD COUNT 4.65 10^6/uL (4.20-5.40); RED CELL DISTRIBUTION WIDTH 13.2 % (12.0-15.0); WHITE BLOOD COUNT 7.4 x10^3/uL (4.8-10.8)
== END 2021-11-29 12:42 | disposition home or self-care (01) ==
LOC: LAB.N 12:41
PROVIDERS: ATTEND Family Medicine
DX: G43.909 Migraine, unspecified, not intractable, without status migrainosus (principal)
CPT/HCPCS: 36415; 85025

== ENCOUNTER 2022-04-25 08:00 | Outpatient (CLI) | payer OTHER ==
[2022-04-25 22:45] LABS: BACTERIAL VAGINOSIS DNA NEGATIVE (NEGATIVE); CANDIDA GLABRATA DNA NEGATIVE (NEGATIVE); CANDIDA GROUP DNA NEGATIVE (NEGATIVE); CANDIDA KRUSEI DNA NEGATIVE (NEGATIVE); TRICHOMONAS VAGINALIS DNA NEGATIVE (NEGATIVE)
== END 2022-04-25 23:59 | disposition home or self-care (01) ==
LOC: LAB.N 08:00
PROVIDERS: ATTEND Physician Assistant
DX: N89.8 Other specified noninflammatory disorders of vagina (principal)
CPT/HCPCS: 81514

== ENCOUNTER 2022-07-28 13:52 | Emergency (ER) | payer OTHER ==
[2022-07-28 14:33] LABS: BASOPHILS # (AUTO) 0.1 10^3/uL (0.0-0.1); BASOPHILS % (AUTO) 0.6 %; EOSINOPHILS # (AUTO) 0.2 10^3/uL (0.0-0.7); HCT - HEMATOCRIT 42.8 % (37.0-47.0); HGB - HEMOGLOBIN 13.7 g/dL (12.0-16.0); LYMPHOCYTES # (AUTO) 2.1 10^3/uL (1.5-3.5); LYMPHOCYTES % (AUTO) 25.1 %; MEAN CORPUSCULAR HEMOGLOBIN 28.1 pg (27.0-31.0); MEAN CORPUSCULAR VOLUME 87.7 fL (81.0-99.0); MONOCYTES # (AUTO) 0.7 10^3/uL (0.0-1.0); MONOCYTES % (AUTO) 8.1 %; NEUTROPHILS # (AUTO) 5.4 10^3/uL (1.5-6.6); PLT - PLATELET COUNT 335 10^3/uL (130-450); RED BLOOD COUNT 4.88 10^6/uL (4.20-5.40); RED CELL DISTRIBUTION WIDTH 12.9 % (12.0-15.0); WHITE BLOOD COUNT 8.5 x10^3/uL (4.8-10.8)
[2022-07-28 14:46] LABS: ALBUMIN 4.4 g/dL (3.2-5.5); ALBUMIN/GLOBULIN RATIO 1.5 (1.0-2.2); BILIRUBIN,TOTAL 0.3 mg/dL (0.2-1.0); CALCIUM 9.7 mg/dL (8.5-10.3); POTASSIUM 3.9 mmol/L (3.5-5.0); TOTAL PROTEIN 7.4 g/dL (6.7-8.2)
--- NOTE | 2022-07-28 15:09 | ED Physician Documentation ---
PD HPI ABD PAIN - Stated complaint Stated Complaint: ABD PX - Chief complaint Chief Complaint: Abd Pain - History obtained from History obtained from: Patient - History of Present Illness Timing - onset: Last night Timing - duration: Days (1) Timing - details: Gradual onset, Still present, Waxing and waning Quality: Aching, Sharp, Pain Location: Epigastric Radiation: Chest, Upper back Improved by: Laying still Worsened by: Moving, Palpation, Other. No: Eating, Breathing Associated symptoms: Nausea, Chest pain (lower substernal area). No: Fever, Vomiting, Diarrhea, Near syncope / syncope, Loss of appetite Similar symptoms before: Has not had sx before Recently seen: Not recently seen Review of Systems Constitutional: denies: Fever, Chills Nose: denies: Rhinorrhea / runny nose, Congestion Throat: denies: Sore throat Cardiac: reports: Chest pain / pressure. denies: Palpitations Respiratory: denies: Dyspnea, Cough GI: reports: Abdominal Pain, Nausea. denies: Vomiting, Diarrhea : denies: Dysuria, Frequency, Discharge Skin: denies: Rash PD PAST MEDICAL HISTORY - Past Medical History Cardiovascular: None Respiratory: None Neuro: Headaches, Migraines, Seizure disorder Endocrine/Autoimmune: None GI: Other TREAD CUTTER: None : None HEENT: None Psych: Depression, Anxiety Musculoskeletal: None Derm: None - Past Surgical History Past Surgical History: Yes General: Appendectomy, Colonoscopy HEENT: Tonsil/Adenoidectomy - Present Medications Home Medications: Ambulatory Orders Medication Instructions Recorded Confirmed Norethindrone 0.35 mg PO DAILY 07/21/17 07/28/22 buPROPion [Wellbutrin Sr] 300 mg PO DAILY 07/21/17 07/28/22 Ondansetron Odt [Zofran] 4 mg TL Q6H PRN #20 tablet 08/03/19 07/28/22 Albuterol 1 each INH PRN PRN 01/28/22 07/28/22 Levetiracetam [Keppra] 2 tab PO DAILY 01/28/22 07/28/22 tiZANidine [Zanaflex] 1 tab PO DAILY 01/28/22 07/28/22 Rimegepant Sulfate [Nurtec Odt] 75 mg PO DAILY PRN 01/29/22 07/28/22 HYDROcod/ACETAM 5/325 [Mckinney 5/325] 1 ea PO Q6H PRN #18 tablet 07/28/22 Naproxen 500 mg PO BID #20 tab 07/28/22 - Allergies Allergies/Adverse Reactions: Allergies Allergy/AdvReac Type Severity Reaction Status Date / Time lamotrigine [From Lamictal] Allergy Rash Verified 07/28/22 14:00 metoclopramide [From Reglan] AdvReac Anxiety Verified 07/28/22 14:00 - Social History Does the pt smoke?: No Smoking Status: Never smoker Does the pt drink ETOH?: Yes Does the pt have substance abuse?: No - Immunizations Immunizations are current?: Yes - POLST Patient has POLST: No PD ED PE NORMAL - Vitals Vital signs reviewed: Yes - General General: Alert and oriented X 3, No acute distress, Well developed/nourished - HEENT HEENT: Pharynx benign - Neck Neck: Supple, no meningeal sign, No adenopathy - Cardiac Cardiac: RRR, No murmur - Respiratory Respiratory: Clear bilaterally - Abdomen Abdomen: Soft, Non distended, No organomegaly, Other (epigastric area and lower end of sternum with tenderness. No rash nor sores. ). No: Normal bowel sounds (increased) - Derm Derm: Normal color, Warm and dry, No rash - Neuro Neuro: Alert and oriented X 3, No motor deficit, Normal speech Results - Vitals Vitals: Vital Signs - 24 hr 07/28/22 07/28/22 07/28/22 13:56 16:06 18:16 Temperature 36.2 C L Heart Rate 103 H 80 80 Respiratory 16 17 17 Rate Blood Pressure 146/112 H 137/96 H 133/96 H O2 Saturation 100 100 100 Oxygen O2 Source Room air - EKG (time done) 14:02 Rate: Rate (enter#) (99) Rhythm: NSR [place]: Normal Intervals: Normal RI QRS: Normal Ischemia: Normal ST segments. No: ST elevation c/w ischemia, ST depression Compare to prior EKG: Old EKG unavailable - Labs Labs: Laboratory Tests 07/28/22 07/28/22 07/28/22 14:28 14:28 14:28 WBC 8.5 RBC 4.88 Hgb 13.7 Hct 42.8 MCV 87.7 MCH 28.1 MCHC 32.0 RDW 12.9 Plt Count 335 MPV 9.0 Neut # (Auto) 5.4 Lymph # (Auto) 2.1 [place] # (Auto) 0.7 Eos # (Auto) 0.2 Baso # (Auto) 0.1 Absolute Nucleated RBC 0.00 Nucleated RBC % 0.0 Sodium 142 Potassium 3.9 Chloride 106 Carbon Dioxide 28 Anion Gap 8.0 BUN 10 Creatinine 1.0 Estimated GFR (MDRD) 63 L Glucose 95 Calcium 9.7 Total Bilirubin 0.3 AST 20 ALT 16 Alkaline Phosphatase 71 Troponin I High Sens < 2.3 L Total Protein 7.4 Albumin 4.4 Globulin 3.0 Albumin/Globulin Ratio 1.5 Lipase 41 Urine Color Urine Clarity Urine pH Ur Specific [place] Urine Protein Urine Glucose (UA) Urine Ketones Urine Occult Blood Urine Nitrite Urine Bilirubin Urine Urobilinogen Ur Leukocyte Esterase Ur Microscopic Review Urine Culture Comments 07/28/22 15:15 WBC RBC Hgb Hct MCV MCH MCHC RDW Plt Count MPV Neut # (Auto) Lymph # (Auto) [place] # (Auto) Eos # (Auto) Baso # (Auto) Absolute Nucleated RBC Nucleated RBC % Sodium Potassium Chloride Carbon Dioxide Anion Gap BUN Creatinine Estimated GFR (MDRD) Glucose Calcium Total Bilirubin AST ALT Alkaline Phosphatase Troponin I High Sens Total Protein Albumin Globulin Albumin/Globulin Ratio Lipase Urine Color YELLOW Urine Clarity CLEAR Urine pH 7.0 Ur Specific [place] 1.010 Urine Protein NEGATIVE Urine Glucose (UA) NEGATIVE Urine Ketones NEGATIVE Urine Occult Blood NEGATIVE Urine Nitrite NEGATIVE Urine Bilirubin NEGATIVE Urine Urobilinogen 0.2 (NORMAL) Ur Leukocyte Esterase NEGATIVE Ur Microscopic Review NOT INDICATED Urine Culture Comments NOT INDICATED - Rads (name of study) abd U/S Radiology: Prelim report reviewed (no gallstones, no acute cholecystitis. normal lidney. Aorta 2.1 cm. ), See rad report PD MEDICAL DECISION MAKING - ED course Complexity details: reviewed results (no acute process. No change with GI cocktail. Has tenderness lower xyphoid/sternum. No redness/rash. presume costochondral pain. ), considered differential, d/w patient Departure - Departure Disposition: 01 Home, Self Care Clinical Impression: Epigastric pain, Costochondral chest pain Condition: Stable Record reviewed to determine appropriate education?: Yes Instructions: ED Chest Pain Costochondritis Follow-Up: Hannah Tong PA [Primary Care Provider] - Prescriptions: Naproxen 500 mg PO BID #20 tab HYDROcod/ACETAM 5/325 [Mckinney 5/325] 1 ea PO Q6H PRN #18 tablet PRN Reason: Pain Comments: Your EKG, abdominal ultrasound, blood tests are normal. No signs of heart attack or heart failure, aortic process such as aneurysm, gallbladder gallstones, pancreatitis, kidney inflammation. You did not have improvement with antacid and numbing medicine. I would presume your pain is related to inflammation of the chest wall and lower sternal cartilage at this point. I would treated with anti-inflammatories of naproxen twice daily with food for the next 7 to 10 days. To that add Tylenol every 4-6 hours if needed for pain or hydrocodone if needed for worsening pitting. I transmitted prescriptions to [facility] pharmacy in [place]. Recheck if not improving well over the next several days and return if worsening. I am prescribing a short course of narcotic pain medication for you. These are potentially dangerous and addictive medications that should be used carefully. These medications may constipate you. Take an [id number]-[id number] stool softener such as docusate twice daily with plenty of water while taking these medications. If you go 24 hours without a bowel movement, take [id number] MiraLAX, per package instructions. Do not drink or drive while taking these medications. If you received narcotic or sedating medications while in the emergency department do not drive for 24 hours. Store this medication in a safe, secure place and out of reach of children. It is a violation of federal law to give or sell this medication to another person or to use in a manner other than prescribed. The ED will not refill narcotic prescriptions, including prescriptions lost or stolen. You can dispose of unwanted medications at the [facility]'s office or at several pharmacies such as [facility]. Discharge Date/Time: 07/28/22 18:17
[2022-07-28 15:22] LABS: BILIRUBIN,URINE NEGATIVE (NEGATIVE); GLUCOSE, URINE (UA) NEGATIVE (NEGATIVE); KETONES,URINE (UA) NEGATIVE (NEGATIVE); LEUKOCYTE ESTERASE, URINE NEGATIVE (NEGATIVE); NITRITE,URINE NEGATIVE (NEGATIVE); OCCULT BLOOD,URINE NEGATIVE (NEGATIVE); PROTEIN,URINE NEGATIVE (NEGATIVE); UROBILINOGEN,URINE 0.2 (NORMAL) E.U./dL (NORMAL)
[2022-07-28 15:31] LABS: CLARITY,URINE CLEAR (CLEAR)
[2022-07-28] MEDS ORDERED: MAG HYDROX/AL HYDROX/SIMETH 30 ML UDC PO STA (15:46)
[2022-07-28] MEDS ORDERED: LIDOCAINE VISCOUS 2% 15 ML UDC MM STA (15:46)
[2022-07-28] MEDS ORDERED: ACETAMINOPHEN 325 MG TABLET PO STA (15:47)
--- NOTE | 2022-07-28 17:22 | Ultrasound Report ---
PROCEDURE: Abdomen Limited INDICATIONS: epigastric to RUQ abd pain since last night TECHNIQUE: Real-time scanning was performed of the right upper quadrant, with image documentation. COMPARISON: CT abdomen and pelvis 08/03/2019. FINDINGS: Liver: Liver is normal in size and homogeneous in echotexture. Gallbladder: Gallbladder is nondistended. No stones or sludge. No gallbladder wall thickening. No per icholecystic fluid. Negative sonographic Deleon sign. Biliary ducts: Intrahepatic bile ducts are non-dilated. Extrahepatic bile duct caliber measures 3 m m. Normal is 6-7 mm or less in diameter, or 10 mm or less post-cholecystectomy. Pancreas: Visualized portions of the pancreas are sonographically normal. Kidneys: Right kidney measures 12.4 cm long. No hydronephrosis. Aorta: Proximal aorta measures 2.1 cm. IVC: Intrahepatic inferior vena cava is patent. IMPRESSION: No acute cholecystitis. No gallstones. Reviewed by: Rob Pedroza MD on 07/28/2022 4:20 PM KATHERIN Approved by: Rob Pedroza MD on 07/28/2022 4:20 PM INIRMA Station ID: [id number]
[2022-07-28] MEDS ORDERED: HYDROcod/ACETAM 5/325 MG TABLET PO STA (17:58)
[2022-07-28] MEDS ORDERED: HYDROcod/ACET 5/325 Prepack 4 PO STA (17:58)
[2022-07-28] MEDS ORDERED: NAPROXEN 250 MG TABLET PO STA (17:58)
[2022-07-28 18:17] VITALS: BP 133/96
== END 2022-07-28 18:17 | disposition home or self-care (01) ==
LOC: ED 13:52
DX: R10.13 Epigastric pain (principal); R07.1 Chest pain on breathing
CPT/HCPCS: 36415; 76705; 80053; 81003; 83690; 84484; 85025; 93005; 99284; A9270; 81001; 87086

== ENCOUNTER 2022-09-24 09:29 | Outpatient (CLI) | payer OTHER ==
--- NOTE | 2022-09-24 13:01 | MRI Report ---
PROCEDURE: ANKLE WO - LT INDICATIONS: LEFT ANKLE PAIN TECHNIQUE: Noncontrast Magnetic Resonance Imaging (MRI) of the ankle/hindfoot was performed utilizing the follow ing sequences: sagittal T1 spin echo, sagittal STIR, axial PD fast spin echo, axial T2 fast spin echo with fat saturation, coronal T2 spin echo with fat saturation, and coronal PD fast spin echo with fa t saturation. COMPARISON: Left ankle radiographs 03/03/2021 FINDINGS: Image quality: Excellent. Bones and joints: No acute trabecular bone injury or fracture. No hindfoot coalition. A chronic osteochondral lesion is seen at the lateral talar dome measuring approximately 8 x 10 x 5 mm with subchondral edema and cyst ic changes. There is overlying full-thickness cartilage loss and irregularity of the subchondral plat e. No displaced osteochondral fragment is identified. No significant degenerative changes are seen in the midfoot or hindfoot. A ganglion cyst is seen lateral to the cuboid measuring approximately 8 x 5 x 6 mm. Moderate mortise joint effusion. Medial structures: The deltoid ligament and the spring ligament are intact. The posterior tibialis, flexor digitorum kevin brittani, and flexor hallucis longus tendons are intact. The posterior tibial neurovascular bundle appears normal within the tarsal tunnel, without extrinsic mass effect. Lateral structures: The anterior and posterior distal tibiofibular ligaments are intact. There is thickening of the anter ior talofibular ligament and the lacertus and calcaneofibular ligament, consistent with remote prior moderate grade sprains. The posterior talofibular ligament is intact. There is mild peroneus brevis a nd longus tenosynovitis. The sinus tarsi demonstrates normal fatty signal. Anterior structures: The tibialis anterior, extensor hallucis longus, and extensor digitorum longus tendons appear intact. Posterior and plantar structures: The Achilles tendon is intact. There is mild thickening the proximal plantar fascia without surroundi ng edema. No disproportionate atrophy of the abductor digiti minimi muscle. 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 No definite loose osteochondral fragment is seen. Moderate mortise joint effusion. 2.Chronic grade 2 sprain of the anterior talofibular ligament and calcaneofibular ligament. 3.Mild peroneus brevis and longus tenosynovitis. 4.Mild chronic proximal plantar fasciitis. 5.Small ganglion cyst along the lateral aspect of the cuboid. Reviewed by: Zach Paul MD on 09/24/2022 1:00 PM PST Approved by: Zach Paul MD on 09/24/2022 1:00 PM PST Station ID: [id number]
== END 2022-09-24 09:30 | disposition home or self-care (01) ==
LOC: DI 09:29
PROVIDERS: ATTEND Physician Assistant
DX: S93.492A Sprain of other ligament of left ankle, initial encounter (principal); S93.412A Sprain of calcaneofibular ligament of left ankle, initial encounter; M65.9 Synovitis and tenosynovitis, unspecified; M72.2 Plantar fascial fibromatosis; M67.472 Ganglion, left ankle and foot; M89.9 Disorder of bone, unspecified; M25.471 Effusion, right ankle

== ENCOUNTER 2023-01-29 14:10 | Outpatient (CLI) | payer OTHER ==
--- NOTE | 2023-01-29 14:47 | Ultrasound Report ---
PROCEDURE: Duplex Ext Veins Right INDICATIONS: EDEMA, CALF PAIN RIGHT TECHNIQUE: Real-time imaging, as well as color and pulse Doppler interrogation, were performed of the lower extr emity deep veins from the inguinal ligament to the popliteal fossa. COMPARISON: None. FINDINGS: The deep veins are normally compressible, and free of intraluminal thrombus. Color and pu lse Doppler demonstrate normal phasic intraluminal flow. There is normal augmentation response to di stal compression maneuver. IMPRESSION: No deep venous thrombosis. Reviewed by: Virginie Doshi MD on 01/29/2023 2:46 PM PDT Approved by: Virginie Doshi MD on 01/29/2023 2:46 PM PDT Station ID: [id number]
== END 2023-01-29 14:11 | disposition home or self-care (01) ==
LOC: DI 14:10
PROVIDERS: ATTEND Registered Nurse
DX: R60.0 Localized edema (principal); M79.661 Pain in right lower leg

== ENCOUNTER 2023-08-08 08:12 | Outpatient (CLI) | payer OTHER ==
--- NOTE | 2023-08-11 12:16 | Mammography Report ---
BILATERAL DIGITAL DIAGNOSTIC MAMMOGRAM 3D/2D WITH SPOT COMPRESSION: 08/08/2023 CLINICAL: Palpable right breast lump. Right nipple pain. Baseline. No prior exams were available for comparison. Both breasts are extremely dense, which lowers the sensitivity of mammography (category d />75% gland ular tissue). There is a focal asymmetry in the right breast at 11 o'clock posterior depth. This correlates to the area of reported pain. There also is a 0.5 cm oval mass with a circumscribed margin in the right breast at 3 o'clock posteri or depth. No other significant masses, calcifications, or other findings are seen in either breast. IMPRESSION: INCOMPLETE: NEEDS ADDITIONAL IMAGING EVALUATION The focal asymmetry in the right breast at 11 o'clock posterior depth resembles fibroglandular tissue and is indeterminate. An ultrasound is recommended. The 0.5 cm oval mass in the right breast at 3 o'clock posterior depth is indeterminate. An ultrasoun d is recommended. There is no abnormality seen in the right breast to correspond with the nipple abnormality, however, ultrasound is recommended. Based on the Tyrer Cuzick model (a risk assessment model) the patients lifetime risk is 14.0% and he r 10 year risk is 1.2%. According to the ACR, ACS, and NCCN guidelines, an annual breast MRI exam tabitha ng with mammogram is recommended if the patients lifetime risk is 20% or greater. This exam was interpreted at Station ID: [id number]. NOTE: For mammograms, a report in lay terms will be sent to the patient. Approximately 15% of breast malignancies will not be visualized mammographically. In the management of a palpable breast mass, a negative mammogram must not discourage biopsy of a clinically suspicious lesion. Electronically Signed By: Maximilian Fernandez M.D. lc/:08/08/2023 09:44:42 ACR BI-RADS Category 0: Incomplete 3340F PARENCHYMAL PATTERN: (VD) - The breast(s) demonstrate(s) extremely dense parenchyma, limiting the sen sitivity of mammography. BI-RADS CATEGORY: (0) - 0 Ultrasound [id number] Immediate follow-up LATERALITY: (B)
--- NOTE | 2023-08-11 12:16 | Ultrasound Report ---
LIMITED ULTRASOUND OF RIGHT BREAST: 08/08/2023 CLINICAL: Intermittent pain in right breast. Right nipple burning sensation. No prior exams were available for comparison. Color flow ultrasound of the right breast 3-4 o'clock, 8-12 o'clock, and retroareolar regions was per formed. Chaparro scale images of the real-time examination were reviewed. No significant sonographic breast findings. IMPRESSION: PROBABLY BENIGN There is no abnormality seen in the right breast to correspond with the nipple abnormality and pain a t 8 o'clock, however, clinical correlation and clinical followup are recommended. There are no abnormalities seen in the right breast to correspond with the mammography findings at 3 and 4 o'clock (oval circumscribed mass, possibly lymph node) and in the upper outer quadrant (focal a symmetry, possible glandular tissue, adjacent to patient's pain). These are probably benign. A follow-up mammogram in 6 months is recommended to demonstrate stability. This exam was interpreted at Station ID: [id number]. Electronically Signed By: Maximilian Fernandez M.D. lc/:08/08/2023 09:47:16 Ultrasound BI-RADS: 3 Probably benign BI-RADS CATEGORY: (3) - 3 Mammogram [id number] 6 month follow-up LATERALITY: (B)
== END 2023-08-08 08:13 | disposition home or self-care (01) ==
LOC: DI 08:12
PROVIDERS: ATTEND Physician Assistant
DX: N64.4 Mastodynia (principal); R92.30 Dense breasts, unspecified

== ENCOUNTER 2023-11-05 10:36 | Outpatient (CLI) | payer OTHER ==
--- NOTE | 2023-11-05 14:01 | XRAY Report ---
PROCEDURE: Thoracic Spine 2V INDICATIONS: RIGHT THORACIC REGION BACK PAIN TECHNIQUE: 3 views of the thoracic spine were acquired. COMPARISON: None. FINDINGS: Bones: No fractures or dislocations. No suspicious bony lesions. 12 pairs of ribs are noted, and a ppear intact where visualized. Vertebral body height and disc spaces are maintained with tiny multile kamran anterior osteophytosis. Soft tissues: No paravertebral stripe thickening. IMPRESSION: No acute bony abnormality. Minimal multilevel degenerative changes of the spine. Reviewed by: Suri Lino MD on 11/05/2023 2:00 PM PST Approved by: Suri Lino MD on 11/05/2023 2:00 PM PST Station ID: [id number]
== END 2023-11-05 10:37 | disposition home or self-care (01) ==
LOC: DI.N 10:36
PROVIDERS: ATTEND Physician Assistant
DX: M47.814 Spondylosis without myelopathy or radiculopathy, thoracic region (principal)

== ENCOUNTER 2024-02-28 17:17 | Outpatient (CLI) | payer OTHER ==
--- NOTE | 2024-03-01 02:03 | XRAY Report ---
PROCEDURE: Foot 3+V LT INDICATIONS: TENDINITIS OF LEFT FOOT TECHNIQUE: 3 views of the foot were acquired. COMPARISON: Left ankle MR 09/24/2022 and radiographs 03/03/2021. FINDINGS: Bones: No acute fractures or dislocations. No suspicious bony lesions. Previously seen osteochondr al lesion at the talar dome is not well evaluated on this forefoot exam. Mild scattered degenerative changes are seen at the interphalangeal joints of the toes. Small posterior calcaneal enthesophyte. Soft tissues: No suspicious soft tissue calcifications. IMPRESSION: No acute osseous abnormality. If symptoms persist or there is continued clinical concern, further sahil luation with MRI or CT may be helpful. Reviewed by: Zach Paul MD on 03/01/2024 2:02 AM PDT Approved by: aZch Paul MD on 03/01/2024 2:02 AM PDT Station ID: [id number]
== END 2024-02-28 17:18 | disposition home or self-care (01) ==
LOC: DI 17:17
PROVIDERS: ATTEND Emergency Medicine
DX: M77.9 Enthesopathy, unspecified (principal)

== ENCOUNTER 2024-03-04 07:13 | Outpatient (CLI) | payer OTHER ==
[2024-03-04 12:02] LABS: BASOPHILS # (AUTO) 0.1 10^3/uL (0.0-0.1); BASOPHILS % (AUTO) 1.1 %; EOSINOPHILS # (AUTO) 0.1 10^3/uL (0.0-0.7); EOSINOPHILS % (AUTO) 1.8 %; HCT - HEMATOCRIT 40.7 % (37.0-47.0); HGB - HEMOGLOBIN 13.1 g/dL (12.0-16.0); LYMPHOCYTES # (AUTO) 1.5 10^3/uL (1.5-3.5); LYMPHOCYTES % (AUTO) 26.8 %; MEAN CORPUSCULAR HEMOGLOBIN 28.4 pg (27.0-31.0); MEAN CORPUSCULAR HGB CONC 32.2 g/dL (32.0-36.0); MEAN CORPUSCULAR VOLUME 88.1 fL (81.0-99.0); MEAN PLATELET VOLUME 10.3 fL (7.9-10.8); MONOCYTES # (AUTO) 0.5 10^3/uL (0.0-1.0); MONOCYTES % (AUTO) 7.9 %; NEUTROPHILS # (AUTO) 3.5 10^3/uL (1.5-6.6); NEUTROPHILS % (AUTO) 62.2 %; PLT - PLATELET COUNT 331 10^3/uL (130-450); RED BLOOD COUNT 4.62 10^6/uL (4.20-5.40); RED CELL DISTRIBUTION WIDTH 13.3 % (12.0-15.0); WHITE BLOOD COUNT 5.7 x10^3/uL (4.8-10.8)
[2024-03-04 12:15] LABS: ALBUMIN 4.6 g/dL (3.2-5.5); ALBUMIN/GLOBULIN RATIO 1.8 (1.0-2.2); ALKALINE PHOSPHATASE 59 IU/L (42-121); ALT ALANINE AMINOTRANSFERASE 10 IU/L (10-60); AST ASPARTATE AMINOTRANSFERASE 17 IU/L (10-42); BILIRUBIN,TOTAL 0.5 mg/dL (0.2-1.0); BUN - BLOOD UREA NITROGEN 9 mg/dL (6-20); CALCIUM 9.8 mg/dL (8.5-10.3); CARBON DIOXIDE - CO2 29 mmol/L (21-32); CHLORIDE 104 mmol/L (101-111); CHOL/HDL RATIO 2.4 (<4.4); CHOLESTEROL 172 mg/dL; CREATININE 1.2 mg/dL (0.6-1.3); GFR - MDRD 51 (>89); GLUCOSE 91 mg/dL (74-104); HDL CHOLESTEROL 72 mg/dL; LDL CHOLESTEROL,CALCULATED 86 mg/dL; LDL/HDL RATIO 1.2 (<4.4); POTASSIUM 4.2 mmol/L (3.5-4.5); SODIUM 138 mmol/L (135-145); TOTAL PROTEIN 7.1 g/dL (6.4-8.9); TRIGLYCERIDES 68 mg/dL (48-352); VLDL CHOLESTEROL 14 mg/dL
[2024-03-04 12:22] LABS: ESTIMATED AVERAGE GLUCOSE 85 mg/dL (70-100); HEMOGLOBIN A1c% 4.6 % (4.27-6.07)
== END 2024-03-04 07:14 | disposition home or self-care (01) ==
LOC: LAB.N 07:13
PROVIDERS: ATTEND Physician Assistant
DX: R73.01 Impaired fasting glucose (principal); Z13.9 Encounter for screening, unspecified
CPT/HCPCS: 36415; 80053; 80061; 83036; 83721; 84443; 85025

== ENCOUNTER 2024-03-14 12:48 | Outpatient (CLI) | payer OTHER ==
--- NOTE | 2024-03-15 07:03 | Ultrasound Report ---
PROCEDURE: Pelvic w/Transvaginal INDICATIONS: RIGHT PELVIC PAIN TECHNIQUE: Real-time scanning was performed of the pelvic organs, with image documentation. Additional endovagi nal scanning was necessary due to incomplete visualization of the adnexal and endometrial structures by transabdominal scanning. COMPARISON: 11/16/2021 FINDINGS: Uterus: 6.4 x 3.3 x 4.3 cm. Anteverted positioning. Endometrium measures 6 mm, within normal limits. Suspected nabothian cysts are present. There are small calcifications, possibly senescent measuring u p to 6 mm in the cervix. Ovaries: Nonenlarged bilaterally. Suspected right corpus luteum cyst and bilateral follicular cysts a re present. Other: No pathologic free fluid. IMPRESSION: No significant or acute sonographic abnormalities in the pelvis Reviewed by: Maximilian Fernandez MD on 03/15/2024 7:01 AM PDT Approved by: Maximilian Fernnadez MD on 03/15/2024 7:01 AM PDT Station ID: [id number]
== END 2024-03-14 12:49 | disposition home or self-care (01) ==
LOC: DI 12:48
PROVIDERS: ATTEND Physician Assistant
DX: R10.2 Pelvic and perineal pain (principal)

== ENCOUNTER 2024-04-16 16:21 | Outpatient (CLI) | payer OTHER ==
[2024-04-16] MEDS ORDERED: iohexoL-300 100 ML VIAL ONE (16:29)
[2024-04-16] MEDS ORDERED: DIATRIZOATE MEGLU/DIATRIZO SOD 30 ML BOTTLE PO ONE (16:29)
[2024-04-16 17:09] LABS: CALCIUM 9.6 mg/dL (8.5-10.3); CREATININE 0.9 mg/dL (0.6-1.3); POTASSIUM 3.7 mmol/L (3.5-4.5)
[2024-04-16] MEDS: DIATRIZOATE MEGLU/DIATRIZO SOD 30 ML BOTTLE PO ONE (17:31)
[2024-04-16] MEDS: iohexoL-300 100 ML VIAL IVP ONE (17:31)
--- NOTE | 2024-04-16 22:06 | CT Report ---
PROCEDURE: Abdomen/Pelvis W INDICATIONS: R LOWER QUAD ABD PAIN CONTRAST: 100ml omni 300 TECHNIQUE: After the administration of intravenous and oral contrast, a CT scan of the abdomen and pelvis was pe rformed. Images were recorded and evaluated at appropriate window settings. Reformats: coronal and sa gittal. For radiation dose reduction, the following was used: automated exposure control, adjustment of mA and/or kV according to patient size. COMPARISON: Ultrasound of abdomen dated 07/28/2022. Pelvic ultrasound dated 03/14/2024. CT of abdomen and pelvis dated 08/03/2019. FINDINGS: Image quality: Diagnostic. Lower chest: Unremarkable. Liver: No solid mass. Mild hepatic steatosis is seen. Gallbladder: No radiopaque stones or wall thickening. Biliary tree: No intrahepatic or extrahepatic dilation, accounting for age. Spleen: No splenomegaly. Pancreas: No pancreatic ductal dilation. Adrenals: No adrenal nodule. Kidneys and ureters: No hydronephrosis. No renal cystic lesion which requires follow up. No solid mas s. Stomach, bowel and peritoneum: No gastric or small bowel dilation. No abnormal wall thickening. No pa thologic free fluid. Patient is status post prior appendectomy. No peritoneal free air. No abscess co llection. Mild fecal stasis in the colon is seen. Lymph nodes: No central or retroperitoneal adenopathy. Vessels: No infrarenal aortic aneurysm. Patent portal vein. PELVIS Reproductive organs: Unremarkable. Bladder: No abnormal wall thickening, accounting for underdistention. Pelvic lymph nodes: No pelvic adenopathy by size criteria. Bones: No aggressive osseous abnormality. Other: No significant ventral or inguinal hernia. IMPRESSION: 1. No bowel obstruction or abnormal bowel wall thickening. Mild constipation. Prior appendectomy. No free fluid of free air. 2. Mild hepatic steatosis, no discrete hepatic lesion. 3. No renal stones or hydronephrosis. Reviewed by: Jose Alejandro Brito MD on 04/16/2024 10:04 PM PDT Approved by: Jose Alejandro Brito MD on 04/16/2024 10:04 PM PDT Station ID: [id number]
== END 2024-04-16 16:22 | disposition home or self-care (01) ==
LOC: LAB 16:21
PROVIDERS: ATTEND Physician Assistant
DX: R10.31 Right lower quadrant pain (principal); R94.4 Abnormal results of kidney function studies; K59.00 Constipation, unspecified; K76.0 Fatty (change of) liver, not elsewhere classified
CPT/HCPCS: 36415; 74177; 80048; Q9963; Q9967; 82565

== ENCOUNTER 2024-04-23 12:25 | Outpatient (CLI) | payer OTHER ==
--- NOTE | 2024-04-26 09:45 | Mammography Report ---
UNILATERAL RIGHT DIGITAL DIAGNOSTIC MAMMOGRAM 3D/2D: 04/23/2024 CLINICAL: Patient returns for a 6 month follow up of the right breast. Comparison is made to exams dated: 08/08/2023 mammogram and 08/08/2023 ultrasound - [facility]. The right breast is heterogeneously dense, which may obscure small masses (category c / 51-75% glandu lar tissue). There is a stable focal asymmetry in the right breast at 11 o'clock posterior depth. This correlates to the area of reported pain but was not seen on the prior ultrasound. There also is a stable 0.5 cm oval mass with a circumscribed margin in the right breast at 3 o'clock posterior depth. This was not seen on the prior ultrasound. No other significant masses or calcifications are seen in the breast. IMPRESSION: PROBABLY BENIGN The stable focal asymmetry in the right breast at 11 o'clock posterior depth most likely is fibroglan dular tissue and is probably benign. The stable 0.5 cm oval mass in the right breast at 3 o'clock posterior depth most likely is a cyst or a fibroadenoma and is probably benign. A follow-up mammogram and possible ultrasound in 6 months is recommended to demonstrate stability. Patient will be due for left breast mammogram at that time. Exam findings were conveyed to the patient. Patient is advised to monitor for significant change. Based on the Tyrer Cuzick model (a risk assessment model) the patient's lifetime risk is 13.9% and he r 10 year risk is 1.3%. According to the ACR, ACS, and NCCN guidelines, an annual breast MRI exam tabitha ng with mammogram is recommended if the patient's lifetime risk is 20% or greater. This exam was interpreted at Station ID: [id number]. NOTE: For mammograms, a report in lay terms will be sent to the patient. Approximately 15% of breast malignancies will not be visualized mammographically. In the management of a palpable breast mass, a negative mammogram must not discourage biopsy of a clinically suspicious lesion. Electronically Signed By: Rob Pedroza M.D. slc/:04/23/2024 13:07:22 ACR BI-RADS Category 3: Probably benign 3343F PARENCHYMAL PATTERN: (D) - The breast(s) demonstrate(s) heterogeneously dense fibroglandular elizabeth jefferson. BI-RADS CATEGORY: (3) - 3 Mammo and [place] [id number] 6 month follow-up LATERALITY: (B)
== END 2024-04-23 12:26 | disposition home or self-care (01) ==
LOC: DI 12:25
PROVIDERS: ATTEND Physician Assistant
DX: R92.8 Other abnormal and inconclusive findings on diagnostic imaging of breast (principal); N63.15 Unspecified lump in the right breast, overlapping quadrants